=== PATIENT | female | born 1940 | race Caucasian/White ===

== ENCOUNTER 2019-06-02 23:30 | Inpatient (IN) | payer MEDICARE, OTHER ==
[~2019-06-02] VITALS: Ht 152.4 cm; Wt 56.2 kg
--- NOTE | 2019-06-02 23:40 | NUR ---
SEEN AND EXAMINED BY .
[2019-06-02] MEDS ORDERED: MORPHINE SULFATE INJ 4 MG/ML DISP.SYRIN ONE (23:42)
[2019-06-02] MEDS ORDERED: ONDANSETRON HCL/PF 4 MG/2 ML VIAL ONE (23:42)
--- NOTE | 2019-06-02 23:50 | NUR ---
PT AAOX3. BIBRA 102 FROM HOME C/O R FLANK PAIN AND ABD PAIN THAT STARTED 2 HOURS PRIOR TO ARRIVAL. PT PLACED IN BED 1, IV INITIATED, LABS DRAWN, AND GIVEN PAIN MEDICATION. PT PLACED IN HOSPITAL GOWN, ON MONITOR, AND PULSE OX. DAUGHTER AT BEDSIDE SPEAKING TO MD DUE TO PT BEING ETHIOPIAN SPEAKING ONLY. VSS. WILL CONTINUE TO MONITOR.
[2019-06-02 23:51] LABS: BASOPHILS # (AUTO) 0.1 /CMM (0.0-0.2); BASOPHILS % (AUTO) 0.7 % (0.0-2.0); EOSINOPHILS % (AUTO) 0.4 % (0.0-6.0); HEMATOCRIT 42 % (33-45); HEMOGLOBIN 13.2 g/dL (11.5-14.8); LYMPHOCYTES # (AUTO) 3.4 /CMM (0.8-4.8); LYMPHOCYTES % (AUTO) 26.6 % (20.0-44.0); MEAN CORPUSCULAR HGB CONC 31 g/dl (31.0-36.0); MEAN CORPUSCULAR VOLUME 89 fL (82-100); MONOCYTES # (AUTO) 0.9 /CMM (0.1-1.30); MONOCYTES % (AUTO) 6.8 % (2.0-12.0); NEUTROPHILS # (AUTO) 8.3 /CMM (1.8-8.9); NEUTROPHILS % (AUTO) 65.5 % (43.0-81.0); PLATELET COUNT (AUTO) 528 /CMM (150-450); RED BLOOD CELL COUNT(AUTO) 4.76 MIL/uL (4.0-5.2); WHITE BLOOD COUNT (AUTO) 12.7 K/uL (4.3-11.0)
[2019-06-02] MEDS ORDERED: KETOROLAC TROMETHAMINE 15 MG/ML VIAL ONE (23:52)
[2019-06-02 23:59] LABS: CARBON DIOXIDE 31 mmol/L (21-32); CHLORIDE 102 mmol/L (98-107); CREATININE 0.9 mg/dL (0.6-1.3); GLUCOSE 165 mg/dL (74-106); POTASSIUM 3.4 mmol/L (3.5-5.1); SODIUM SERUM 142 mmol/L (136-145); UREA NITROGEN, BLOOD 20 mg/dL (7-18)
[2019-06-03] VITALS (11 sets, daily range): BP systolic 60–115; BP diastolic 35–70
[2019-06-03] MEDS ORDERED: MORPHINE SULFATE INJ 2 MG/ML DISP.SYRIN IV ONE
[2019-06-03] MEDS ORDERED: ONDANSETRON HCL/PF 4 MG/2 ML VIAL IVP ONE
[2019-06-03] MEDS ORDERED: KETOROLAC TROMETHAMINE INJ 30 MG/ML VIAL IV ONE
--- NOTE | 2019-06-03 00:02 | NUR ---
PT IS WHEELED TO CT SCAN VIA [facility].
[2019-06-03 00:04] LABS: ALANINE AMINOTRANSFERASE 47 U/L (12-78); ALKALINE PHOSPHATASE 147 U/L (46-116); ASPARTATE AMINOTRANSFERASE 32 U/L (15-37); BILIRUBIN,DIRECT 0.2 mg/dL (0.0-0.2); BILIRUBIN,TOTAL 0.4 mg/dL (0.2-1.0); LIPASE 235 U/L (73-393); TOTAL PROTEIN, SERUM 6.6 g/dL (6.4-8.2)
--- NOTE | 2019-06-03 00:11 | NUR ---
PT RETURNED FROM CT
--- NOTE | 2019-06-03 00:15 | NUR ---
DAUGHTER AT BEDSIDE REFUSING TO LEAVE.
--- NOTE | 2019-06-03 00:25 | NUR ---
DR. MARINA ON THE PHONE WITH RADIOLOGIST, DR. RODGERS
--- NOTE | 2019-06-03 00:32 | NUR ---
DR. PEDERSEN ON THE PHONE WITH DR. WILSON, TELEGRAPH REPEATER TECHNICIAN SURGERY
--- NOTE | 2019-06-03 00:35 | NUR ---
PT C/O OF PAIN, GIVEN PAIN MEDICATION.
[2019-06-03] MEDS ORDERED: DIATR MEGLU/DIATRIZOATE SODIUM 120 ML BOTTLE (GASTROGRAPHIN) ONE (00:42)
[2019-06-03] MEDS ORDERED: METRONIDAZOLE 500MG/ NS 100ML 100 ML IV ONE ×2 (00:44→22:04)
[2019-06-03] MEDS ORDERED: HYDROMORPHONE 1 MG/1 ML DISP.SYRIN ONE ×2 (00:44→04:38)
--- NOTE | 2019-06-03 00:45 | NUR ---
BED ASSIGNMENT 311-1
--- NOTE | 2019-06-03 00:50 | NUR ---
DAUGHTER AT BEDSIDE, TOLD TO WAIT IN THE WAITING ROOM.
--- NOTE | 2019-06-03 00:51 | NUR ---
DR. MARINA ON THE PHONE WITH DR. REILLY
[2019-06-03] MEDS ORDERED: IV NS 0.9% 1,000 ML IV PRN (00:56)
[2019-06-03] MEDS ORDERED: DIATR MEGLU/DIATRIZOATE SODIUM 120 ML BOTTLE (GASTROGRAPHIN) PO ONE (01:00)
[2019-06-03] MEDS ORDERED: Z GUARD REMEDY 2 OZ OINT TP PRN (01:00)
[2019-06-03] MEDS ORDERED: FLAGYL/NS RTU 500 MG/100 ML PIGGYBACK IV ONE (01:00)
[2019-06-03] MEDS ORDERED: FLUCONAZOLE IN NS 100 MG in PREMIX 1 EA IV SCH ×2 (01:00)
[2019-06-03] MEDS ORDERED: FLUCONAZOLE IN NS 100 ML IV ONE (01:00)
[2019-06-03] MEDS ORDERED: HYDROMORPHONE 1 MG/1 ML DISP.SYRIN IV ONE (01:00)
[2019-06-03] MEDS ORDERED: PANTOPRAZOLE 40 MG VIAL ONE (01:10)
--- NOTE | 2019-06-03 01:21 | NUR ---
PT RESTING COMFORTABLY. VSS.
[2019-06-03] MEDS ORDERED: CIPROFLOXACIN IV RTU 200 ML IV ONE (01:50)
[2019-06-03] MEDS: CIPROFLOXACIN IV RTU 400 MG in PREMIX 1 EA IV SCH ×2 (02:00→13:06)
--- NOTE | 2019-06-03 02:06 | NUR ---
BROUGHT TO CT
[2019-06-03] MEDS ORDERED: IOHEXOL-300 100 ML VIAL IV ONE (02:07)
--- NOTE | 2019-06-03 02:55 | NUR ---
ATTEMPTED TO CONTACT DR. WILSON. LEFT MESSAGE, WILL FOLLOW UP
[2019-06-03] MEDS ORDERED: LISI-607 PO (03:03)
[2019-06-03] MEDS ORDERED: APIX2.5T PO (03:03)
[2019-06-03] MEDS ORDERED: ATOR20TA PO (03:03)
[2019-06-03] MEDS ORDERED: FURO40TA5 PO (03:03)
[2019-06-03] MEDS ORDERED: ASPI-1169 PO (03:03)
--- NOTE | 2019-06-03 03:03 | NUR ---
PARTIAL MED LIST OBTAINED FROM DAUGHTER. DAUGHTER WILL BRING MED LIST TO THE HOSPITAL TOMORROW.
--- NOTE | 2019-06-03 03:17 | NUR ---
CLEARANCE DIVER AT BEDSIDE FOR LACTIC
--- NOTE | 2019-06-03 03:19 | NUR ---
LEFT MESSAGE WITH DR. WILSON, WILL FOLLOW UP
--- NOTE | 2019-06-03 04:00 | NUR ---
LEFT MESSAGE WITH DR. WILSON
--- NOTE | 2019-06-03 04:01 | NUR ---
WAGE HAND AT BEDSIDE FOR DRAW.
--- NOTE | 2019-06-03 04:30 | NUR ---
REPORT GIVEN TO PURNIMA BINGHAM FOR JUDIE
[2019-06-03 04:31] LABS: BASOPHILS % (AUTO) 0.5 % (0.0-2.0); EOSINOPHILS % (AUTO) 0.1 % (0.0-6.0); HEMATOCRIT 41 % (33-45); HEMOGLOBIN 13.1 g/dL (11.5-14.8); LYMPHOCYTES # (AUTO) 0.7 /CMM (0.8-4.8); LYMPHOCYTES % (AUTO) 9.5 % (20.0-44.0); MEAN CORPUSCULAR HGB CONC 32 g/dl (31.0-36.0); MEAN CORPUSCULAR VOLUME 88 fL (82-100); MONOCYTES # (AUTO) 0.5 /CMM (0.1-1.30); MONOCYTES % (AUTO) 6.3 % (2.0-12.0); NEUTROPHILS # (AUTO) 6.4 /CMM (1.8-8.9); NEUTROPHILS % (AUTO) 83.6 % (43.0-81.0); PLATELET COUNT (AUTO) 474 /CMM (150-450); RED BLOOD CELL COUNT(AUTO) 4.68 MIL/uL (4.0-5.2); WHITE BLOOD COUNT (AUTO) 7.6 K/uL (4.3-11.0)
--- NOTE | 2019-06-03 04:58 | NUR ---
DR. MARINA ON THE PHONE WITH DR. WILSON
[2019-06-03] MEDS ORDERED: HYDROMORPHONE 1 MG/1 ML DISP.SYRIN IV PRN (05:00)
--- NOTE | 2019-06-03 05:10 | NUR ---
PT TRANSPROTED TO UNIT 3 PER ACLS PROTOCOL
--- NOTE | 2019-06-03 06:50 | NUR ---
MS[facility]. PATIENT WAS AWAKE, ALERT, ORIENTED X 3, COMFORTABLE, NO C/O PAIN, NO DISTRESS NOTED, MADE COMFORTABLE IN BED, TAUGHT THE USE OF CALL LIGHT, PLACED AT BEDSIDE WITHIN REACH, FALL PRECAUTIONS PER PROTOCOL. PATIENT IS SLEEPING AT THIS TIME, WILL CONTINUE TO MONITOR.
--- NOTE | 2019-06-03 07:37 | NUR ---
RENTAL CAR FERRY DRIVER NOTES PT IN BED, AWAKE, ALERT AND VERBALLY RESPONSIVE, WITH COMPLAINT OF SLIGHT PAIN AT RIGHT FLANK, RESPIRATIONS NORMAL, CALL LIGHT WITHIN REACH, IV FLUIDS INFUSING WELL, KEPT WARM AND COMFORTABLE IN BED.
[2019-06-03] MEDS ORDERED: ASPI-1152 PO (07:43)
[2019-06-03] MEDS ORDERED: METO25TA20 PO (07:43)
--- NOTE | 2019-06-03 07:44 | NUR ---
MANAGER BANQUET/MED RECON CALLED AND SPOKE WITH LLOYD [phone] (DAUGHTER). PARTIAL INFORMATION OBTAINED. PER DAUGHTER "I WILL CALL OR BRING THE LIST LATER IF THERE IS MORE MEDICATION". PCP OFFICE AND PHARMACY OF CHOICE IS CLOSED ON . PRIMARY NURSE AWARE.
[2019-06-03] MEDS ORDERED: PANTOPRAZOLE 40 MG VIAL IV SCH (09:00)
--- NOTE | 2019-06-03 13:00 | NUR ---
RETAIL SALESMAN NOTES PT IN BED, AWAKE, ALERT AND ORIENTED, SEEN AND EXAMINED BY DR. TOMMIE WILSON, PLAN OF CARE DISCUSSED WITH PT AND FAMILY VIA PHONE, VERBALIZED UNDERSTANDING, MD ORDERED NGT INSERTION, NOTED AND CARRIED OUT, PT TOLERATED PROCEDURE WELL, VERIFIED PLACEMENT VIA CXR, NGT PROPERLY PLACED, STARTED ON LOW INTERMITTENT SUCTIONS ORDERED, WILL CONTINUE TO MONITOR.
[2019-06-03] MEDS: DIGOXIN INJ 0.5 MG/2 ML AMPUL IV SCH ×3 (13:05→23:39)
[2019-06-03] MEDS ORDERED: IV NS 0.9% 250 ML IV ONE ×2 (17:00)
--- NOTE | 2019-06-03 17:00 | NUR ---
IVF EMBRYOLOGIST NOTES NOTED PT'S BP 58/35, RECHECKED WITH SAME RESULT, RECHECKED USING MANUAL BP, 60/35, HR 92, PT DOES NOT COMPLAIN OF DIZZINESS OR HEADACHE, REMAINS ALERT AND VERBALLY RESPONSIVE, NO CHANGE IN LOC, DR. FOUNTAIN INFORMED WITH ORDER OF NS 250 BOLUS X 1, NOTED AND CARRIED OUT, WILL CONTINUE TO MONITOR PT.
[2019-06-03] MEDS: Potassium Chloride 20 MEQ in IV D5/0.45 NACL 1,000 ML IV PRN ×2 (17:16→20:08)
--- NOTE | 2019-06-03 17:30 | NUR ---
GEOCHEMIST NOTES COMPLETED NS BOLUS OF 250 ML, BP 81/48, DR. FOUNTAIN INFORMED, NEW LABS ORDERED.
[2019-06-03 17:49] LABS: BASOPHILS % (AUTO) 0.1 % (0.0-2.0); LYMPHOCYTES # (AUTO) 0.9 /CMM (0.8-4.8); WHITE BLOOD COUNT (AUTO) 10.6 K/uL (4.3-11.0)
--- NOTE | 2019-06-03 18:00 | NUR ---
BATTERY INSPECTOR NOTES PER BELINDA TRAYLOR TO GIVE DIGOXIN ORDERED.
--- NOTE | 2019-06-03 18:00 | NUR ---
HIMS CODER NOTES PT'S BP 84/49 HR 100, DR. FOUNTAIN INFORMED, NO NEW ORDER GIVEN, AWAITING LAB RESULTS, PT REMAINS ALERT, NO CHANGE IN LOC, WILL CONTINUE TO MONITOR.
[2019-06-03 18:08] LABS: LYMPHOCYTES % (AUTO) 8.9 % (20.0-44.0); MEAN CORPUSCULAR HGB CONC 31 g/dl (31.0-36.0); MEAN CORPUSCULAR VOLUME 89 fL (82-100)
[2019-06-03 18:22] LABS: MONOCYTES % (AUTO) 4.2 % (2.0-12.0); NEUTROPHILS % (AUTO) 86.9 % (43.0-81.0)
[2019-06-03 18:23] LABS: MONOCYTES # (AUTO) 0.4 /CMM (0.1-1.30); NEUTROPHILS # (AUTO) 9.2 /CMM (1.8-8.9); RED BLOOD CELL COUNT(AUTO) 4.83 MIL/uL (4.0-5.2)
[2019-06-03 18:24] LABS: HEMATOCRIT 43 % (33-45); HEMOGLOBIN 13.3 g/dL (11.5-14.8); PLATELET COUNT (AUTO) 405 /CMM (150-450)
[2019-06-03] MEDS: METRONIDAZOLE 500MG/ NS 100ML 500 MG in PREMIX 1 EA IV SCH ×2 (18:54→23:29)
[2019-06-03] MEDS ORDERED: IV NS 0.9% 500 ML IV STA (19:11)
--- NOTE | 2019-06-03 19:21 | NUR ---
RN NOTES: DR FOUNTAIN CURRENTLY IN THE UNIT, RELAYED LACTIC ACID RESULT AND LOW BP. RECHECK MANY TIMES USING MANUAL AND AUTOMATIC CUFF, ALSO MD RECHECK IT HIMSELF, STILL ON LOW 70'S. PER MD VERBAL ORDER TO GIVE 500ML NS BOLUS, TRANSFER TO ICU, START ON PRESSORS IN ICU, ONCE BP STABILIZE THEN SHE CAN GO TO OR. ALSO MD WILL PUT A PICC LINE PT'S IV ACCESS GOT INFILTRATED, AND PICC IS RECOMMENDED SINCE PT WILL BE GOING TO ICU AND WILL ANTICIPATE LAB WORKS AND DRIPS TO STABILIZE BLOOD PRESSURE.
[2019-06-03] MEDS ORDERED: IV NS 0.9% 500 ML IV ONE (19:30)
[2019-06-03] MEDS ORDERED: NOREPINEPHRINE 8 MG in IV NS 0.9% 242 ML IV PRN (19:30)
--- NOTE | 2019-06-03 19:34 | NUR ---
OPTICAL ADVISOR NOTES PT'S FAMILY INFORMED OF PT'S CHANGE OF CONDITION AND PLAN FOR TRANSFER TO ICU AND THEN TO SURGERY ONCE BP STABILIZES, SPOKE WITH TIFFANY DAUGHTER IN LAW, CONSENT GIVEN FOR CENTRAL LINE INSERTION BY DR. FOUNTAIN, PT REMAINS ALERT AND AWAKE, NO CHANGE IN LOC NOTED.
--- NOTE | 2019-06-03 19:55 | NUR ---
ODD SHOE EXAMINER NOTES PT TRANSFERRED TO ICU VIA ACLS PROTOCOL WITH ALL MEDS AND BELONGINGS, REPORT GIVEN TO AICHA RECREATIONAL THERAPIST FOR CONTINUITY OF CARE, PT REMAINS AWAKE, ALERT AND ORIENTED, NOT IN DISTRESS.
[2019-06-03] MEDS ORDERED: PHENYLEPHRINE 100 MG in IV NS 0.9% 240 ML IV PRN (20:00)
[2019-06-03] MEDS ORDERED: FENTANYL PF 100MCG/2ML AMPUL ONE (20:06)
[2019-06-03] MEDS ORDERED: SUCCINYLCHOLINE CHLORIDE 20 MG/ML VIAL ONE (20:07)
[2019-06-03] MEDS ORDERED: ROCURONIUM BROMIDE 50 MG/5 ML ONE (20:07)
[2019-06-03] MEDS ORDERED: BUPIVACAINE MPF 0.5% W/EPI INJ 30 ML VIAL ONE (20:13)
[2019-06-03] MEDS ORDERED: ANESTHESIA TRAY IN PYXIS 1 EA TRAY MC ONE (20:13)
[2019-06-03] MEDS ORDERED: LIDOCAINE 1% INJ 50 ML MDV IJ ONE (20:13)
[2019-06-03] MEDS ORDERED: PHENYLEPHRINE 10 MG/ML VIAL ONE (20:15)
[2019-06-03] MEDS: PANTOPRAZOLE 40 MG VIAL IV SCH (20:43)
--- NOTE | 2019-06-03 21:00 | NUR ---
SURGICAL NURSE PRACTITIONER NOTES PATIENT LEFT ICU HOSPITAL BED, EN ROUTE TO OR FOR SCHEDULED SURGERY. CONSENTS FOR PROCEDURE, ANESTHESIA AND BLOOD OBTAINED FROM PATIENT'S DAUGHTER TIFFANY RIVERA [phone].
--- NOTE | 2019-06-03 21:30 | NUR ---
TRAINING INSTRUCTOR NOTES - BELONGINGS PATIENT'S BELONGINGS SENT TO SAFE IN NURSING [facility]GNOS ARCHITECT'S OFFICE, WITNESSED BY HOUSE SUPERVISORS JOSE.
--- NOTE | 2019-06-03 23:07 | NUR ---
FOUNTAIN PEN NIBS INSPECTOR NOTES PATIENT BACK FROM SURGERY, S/P EXPLORATORY LAPAROTOMY, REPAIR OF PYLORIC ULCER, GASTRIC WEDGING, BIOPSY OF THE LIVER, ABDOMINAL WASHOUT, VENTRAL HERNIA REPAIR. PATIENT REMAINS ORALLY INTUBATED ON MECHANICAL VENT, ETT 7.0/22CM AT LIP LINE WITH VENT SETTINGS AC16, TV 450, FIO2 100%, NO PEEP. PATIENT WITH MIDLINE ABDOMINAL INCISION, COVERED WITH DRESSING, NO BLEEDING NOTED AT SITE. LEO DRAIN X2 ON LEFT ABDOMONE AND RIGHT ABDOMEN, BOTH WITH SEROSANGUINOUS DRAINAGE. WILL MONITOR CLOSELY
--- NOTE | 2019-06-03 23:41 | NUR ---
PT REC'D POST SURGERY INTUBATED WITH ET TUBE 7.0 AT 22CM AT THE LIP. PT PLACED ON NOTED SETTING AC 16, 450, 0 PEEP 100% PT APPEARS TO BE TOLERATING SETTINGS WELL, NO ADVERSE REACTION. BREATHS SOUNDS EQUAL BILAT. SX DONE SMALL AMOUNT OF THIN FABIAN/YELLOW. VENT ALARMS SET, SOUND, AND AUDIBLE. BED AT 30 DEGREES. AMBU BAG AT BEDSIDE. WILL CONTINUE TO MONITOR. Addendum: 06/03/19 at 2347 by ANNELISE LUX RT Amended: Links added.
--- NOTE | 2019-06-03 23:50 | NUR ---
CHANGE MANAGEMENT NOTES RECEIVED CALL FROM DR CHRISTIANO FOUNTAIN, WITH NEW ORDERS TO START AMIODARONE BOLUS, THEN DRIP, Addendum: 06/03/19 at 2355 by AWAIS PAEZ RN CHRISTIANO FOUNTAIN ALSO WITH NEW ORDER TO INITIATE PROPOFOL DRIP IF PATIENT BECOMES AGITATED. 2ND PRESSOR LEVOPHED IF NEEDED. ALL ORDERS READ BACK FOR CLARIFICATION. WILL MONITOR CLOSELY
[2019-06-03] MEDS ORDERED: AMIODARONE 150 MG/3 ML VIAL IV ONE ×2 (23:57→23:58)
[2019-06-04] VITALS (89 sets, daily range): BP systolic 79–139; BP diastolic 30–96
[2019-06-04] MEDS ORDERED: AMIODARONE 150 MG in IV D5W 100 ML IV ONE ×2
[2019-06-04] MEDS ORDERED: AMIODARONE 450 MG in IV D5W 241 ML IV PRN ×2
[2019-06-04] MEDS ORDERED: NOREPINEPHRINE 8 MG in IV NS 0.9% 242 ML IV PRN ×2
--- NOTE | 2019-06-04 00:15 | NUR ---
DEMONSTRATOR KNITTING NOTES RECEIVED CALL FROM DR MIN, RADIOLOGIST. PER DR MIN ETT IS 1.6CM BELOW KARO, AND TO PULL THE TUBE BACK OUT BY 3CM. RT ANNELISE CALLED TO BEDSIDE, TUBE PULLED OUT 3CM TO 19CM @ LIP LINE
--- NOTE | 2019-06-04 00:18 | NUR ---
RT NOTE: ETT TUBE WITHDRAWN 3CM. ET TUBE NOW AT 19CM ON THE LIP. Addendum: 06/04/19 at 0019 by ANNELISE LUX RT Amended: Links added.
[2019-06-04] MEDS: CIPROFLOXACIN IV RTU 400 MG in PREMIX 1 EA IV SCH ×2 (00:57→12:41)
--- NOTE | 2019-06-04 02:45 | NUR ---
SYSTEMS DESIGNER NOTES DIPRIVAN DRIP INITIATED DUE TO AGITATED, PATIENT COUGHING, SETTING OFF ALARMS AND TAPPING ON SIDE RAIL.
[2019-06-04] MEDS: PROPOFOL 100 ML IV PRN ×4 (02:46→20:27)
--- NOTE | 2019-06-04 02:53 | NUR ---
ROCK CLIMBING INSTRUCTOR NOTES SPOKE TO DR TOMMIE DAY REGARDING HR DROPPING TO 56 BPM WHILE ON AMIODARONE DRIP. PER DR REILLY, HOLD DRIP IF HR GOES BELOW 60BPM, AND RESTART IF HR GOES ABOVE 120BPM.
[2019-06-04] MEDS: METRONIDAZOLE 500MG/ NS 100ML 500 MG in PREMIX 1 EA IV SCH ×3 (02:59→17:10)
[2019-06-04 04:40] LABS: BASOPHILS % (AUTO) 0.2 % (0.0-2.0); HEMATOCRIT 40 % (33-45); HEMOGLOBIN 12.6 g/dL (11.5-14.8); LYMPHOCYTES # (AUTO) 1.4 /CMM (0.8-4.8); LYMPHOCYTES % (AUTO) 7.5 % (20.0-44.0); MEAN CORPUSCULAR HGB CONC 31 g/dl (31.0-36.0); MEAN CORPUSCULAR VOLUME 89 fL (82-100); MONOCYTES # (AUTO) 0.8 /CMM (0.1-1.30); MONOCYTES % (AUTO) 4.5 % (2.0-12.0); NEUTROPHILS % (AUTO) 87.8 % (43.0-81.0); PLATELET COUNT (AUTO) 467 /CMM (150-450); RED BLOOD CELL COUNT(AUTO) 4.52 MIL/uL (4.0-5.2); WHITE BLOOD COUNT (AUTO) 18.3 K/uL (4.3-11.0)
[2019-06-04 04:51] LABS: ALANINE AMINOTRANSFERASE 25 U/L (12-78); ALBUMIN 1.8 g/dL (3.4-5.0); ALKALINE PHOSPHATASE 80 U/L (46-116); ASPARTATE AMINOTRANSFERASE 25 U/L (15-37); BILIRUBIN,TOTAL 0.5 mg/dL (0.2-1.0); CALCIUM, SERUM 7.2 mg/dL (8.5-10.1); CARBON DIOXIDE 26 mmol/L (21-32); CHLORIDE 103 mmol/L (98-107); CREATININE 1.6 mg/dL (0.6-1.3); GLUCOSE 92 mg/dL (74-106); MAGNESIUM 1.6 mg/dL (1.8-2.4); PHOSPHORUS 5.1 mg/dL (2.5-4.9); POTASSIUM 4.7 mmol/L (3.5-5.1); SODIUM SERUM 138 mmol/L (136-145); TOTAL PROTEIN, SERUM 4.6 g/dL (6.4-8.2); UREA NITROGEN, BLOOD 32 mg/dL (7-18)
[2019-06-04 05:01] LABS: CHOLESTEROL 81 mg/dL (<200); HDL CHOLESTEROL 35 mg/dL (40-60); LDL 35 mg/dL (0-99); THYROID STIMULATING HORMONE 3.903 uIU/mL (0.358-3.74); TRIGLYCERIDES 75 mg/dL (30-150)
--- NOTE | 2019-06-04 06:00 | NUR ---
CARDING SUPERVISOR NOTES LEO DRAIN OUTPUT RIGHT 120 - DARK BROWN/SEROSANGUINOUS LEFT 100 - SEROSANGUINOUS
--- NOTE | 2019-06-04 07:00 | NUR ---
RN NOTES RECEIVED PT ON BED, INTUBATED, SEDATED ,ON DIPRIVAN , TOLERATING CURRENT VENT SETTING WELL,O2 SAT 98%,DRESSING TO MID ABDOMEN CLEAN, DRY AND INTACT, RIGHT AND LEFT ABDOMEN LEO DRAINS INTACT, AND DRINING SEROSANGUINEOUS, JAN AT 2.3 MCG/KG/MIN RUNNING VIA R UPPER ARM PICC LINE, SITE CLEAN, DRY AND INTACT, SR UP x3, CALL LIGHT WITHIN EASY REACH, BED LOCKED AND IN LOWEST POSITION, CONTINUE TO MONITOR.
[2019-06-04] MEDS ORDERED: MAGN400T26 PO (07:07)
[2019-06-04] MEDS ORDERED: PHENYLEPHRINE 100 MG in IV NS 0.9% 240 ML IV PRN (07:30)
[2019-06-04] MEDS: IV NS 0.9% 1,000 ML IV SCH ×2 (07:50→14:48)
--- NOTE | 2019-06-04 07:50 | NUR ---
RT PATIENT REC'D ORALLY INTUBATED ON [facility] VENT. ETT SECURE AND PATENT. VENT SETTINGS AND ALARMS CHECKED. RUKHSANAU BAG AT HOB Addendum: 06/04/19 at 1421 by BEV ALTMAN RT Amended: Links added.
[2019-06-04] MEDS: PANTOPRAZOLE 40 MG VIAL IV SCH ×2 (08:08→20:59)
[2019-06-04 08:42] LABS: ABG BASE EXCESS 1.3 mmol/L; ABG OXYGEN SATURATION 98.6 % (92.0-98.5); ABG PCO2 28.3 mmHg (35.0-45.0); ABG PH 7.528 (7.350-7.450); ABG PO2 169.2 mmHg (75.0-100.0); AaDO2 83.5 mmHg; COHb 0.3 % (0.5-1.5); MetHb 0.6 % (0.0-1.5); O2Hb 97.7 % (94.0-97.0); SITE, ABG Right Radial
[2019-06-04] MEDS ORDERED: Magnesium 1GM/D5W 100ML PREMIX 100 ML IV SCH (09:45)
--- NOTE | 2019-06-04 09:45 | NUR ---
RT PER DR RAYMOND TIDAL VOLUME ON [facility] VENT LOWERED TO 400. Addendum: 06/04/19 at 1422 by BEV ALTMAN RT Amended: Links added.
--- NOTE | 2019-06-04 10:00 | NUR ---
RN NOTES DR FOUNTAIN NOTIFED REGARDING 100.2 AXILLARY .
[2019-06-04] MEDS: ACETAMINOPHEN 650 MG/SUPP.RECT RC PRN ×3 (11:02→17:18)
--- NOTE | 2019-06-04 12:00 | NUR ---
RN NOTES DRESSING TO MID ABDOMEN CLEAN ,DRY AND INTACT, PT IS SEDATED, CONTINUE TO MONITOR ,CONTINUE TO TITRATE JAN AND DIPRIVAN GTT PER PROTOCOL.
--- NOTE | 2019-06-04 14:00 | NUR ---
RN NOTES PT SEDATED, NS AT 200CC/HR RUNNING , CONTINUE TO MONITOR .
--- NOTE | 2019-06-04 18:00 | NUR ---
RN NOTES PT ON JAN GTT AT .9 MCG/KG/MIN , DIPRIVAN AT 40 MCG/KG/MIN AND NS AT 200CC/HR RUNNING AT THIS TIME VIA R ARM PICC LINE, IV SITE CLEAN , DRY AND INTACT, FOY DRANING TO GRAVITY WITH TEA COLOR URINE . 170 CC SEROSANGUINEOUS DRAINAGE FROM LEFT LEO DRAIN AND 70 CC DARK GREENISH DRAINING FROM RIGHT LEO DRAIN OBTAINED DURING THIS SHIFT. DRESSING TO MID ABDOMEN CLEAN, DRY AND INTACT , SR UP x3,CALL LIGHT WITHIN EASY REACH , BED LOCKED AND IN LOWEST POSITION, WILL ENDORSE TO TITLE CHECKER NURSE FOR CONTINUITY OF CARE .
--- NOTE | 2019-06-04 19:30 | NUR ---
GREENS PICKER NOTES RECEIVED PATIENT IN BED,SEDATED ON PROPOFOL DRIP CURRENTLY AT 40MCG/KG/MIN. PATIENT ORALLY INTUBATED ON MECHANICAL VENT SETTING PRESCRIBED TOLERATING WELL. NO SIGNS AND SYMPTOMS OF RESPIRATORY DISTRESS NOTED. PATIENT ON TELE MONITORING SHOWING A READING A-FIB CONTROLLED AT 85 BEATS PER MINUTE. MORALES PICC LINE INTACT PATENT RUNNING NORSYNEPHRINE DRIP AT 0.9MCG/KG/MIN. RIGHT NARE NG TUBE ON LOW INTERMITTENT SUCTION,GREENISH DRAINAGE NOTED. MID ABD SURGICAL SITE/ DRESSING CLEAN DRY AND INTACT NO BLEEDING NOTED AT THIS TIME. NOTED WITH LEFT AND RIGHT LEO DRAINAGE. FOY CATHETER PATENT/INTACT DARNING WELL URINE YELLOW TO GRAVITY. BILATERAL SOFT WRIST INTACT PLACED FOR SAFETY. SAFETY MEASURES IN PLACE, BED IN LOW AND LOCKED POSITION. CALL LIGHT WITHIN REACH. WILL CONT TO MONITOR.
[2019-06-04] MEDS ORDERED: FEE PK DOSING 1 MIN EA MC ONE ×2 (19:34→19:40)
[2019-06-04] MEDS: MEROPENEM 500 MG in IV NS 0.9% 50 ML IV SCH (20:26)
[2019-06-04] MEDS: VANCOMYCIN 1 GM in IV D5W 250 ML IV SCH (20:57)
--- NOTE | 2019-06-04 21:00 | NUR ---
GRADUATE ASSISTANT ATHLETIC TRAINER NOTE URINE SPECIMEN COLLECTED USING ASEPTIC TECHNIQUE SENT TO LAB FOR TESTED.
[2019-06-05] VITALS (59 sets, daily range): BP systolic 89–132; BP diastolic 20–99
[2019-06-05] MEDS: PROPOFOL 100 ML IV PRN ×2 (00:35→07:13)
[2019-06-05] MEDS: MORPHINE SULFATE INJ 2 MG/ML DISP.SYRIN IV PRN ×3 (00:50→18:44)
--- NOTE | 2019-06-05 00:50 | NUR ---
ENVIRONMENTAL MANAGER NOTES PRN MORPHINE 2MG ADMINISTERED ORDERED PATIENT NOTED WITH FACIAL GRIMACING HR ELEVATED.
[2019-06-05 04:41] LABS: BASOPHILS # (AUTO) 0.1 /CMM (0.0-0.2); BASOPHILS % (AUTO) 0.6 % (0.0-2.0); EOSINOPHILS % (AUTO) 0.7 % (0.0-6.0); HEMATOCRIT 37 % (33-45); HEMOGLOBIN 11.7 g/dL (11.5-14.8); LYMPHOCYTES # (AUTO) 1.1 /CMM (0.8-4.8); LYMPHOCYTES % (AUTO) 7.2 % (20.0-44.0); MEAN CORPUSCULAR HGB CONC 32 g/dl (31.0-36.0); MEAN CORPUSCULAR VOLUME 88 fL (82-100); MONOCYTES # (AUTO) 0.7 /CMM (0.1-1.30); MONOCYTES % (AUTO) 4.6 % (2.0-12.0); NEUTROPHILS # (AUTO) 13.2 /CMM (1.8-8.9); NEUTROPHILS % (AUTO) 86.9 % (43.0-81.0); PLATELET COUNT (AUTO) 408 /CMM (150-450); RED BLOOD CELL COUNT(AUTO) 4.18 MIL/uL (4.0-5.2); WHITE BLOOD COUNT (AUTO) 15.2 K/uL (4.3-11.0)
[2019-06-05 04:43] LABS: CALCIUM, SERUM 7.8 mg/dL (8.5-10.1); CARBON DIOXIDE 29 mmol/L (21-32); CHLORIDE 108 mmol/L (98-107); CREATININE 1.4 mg/dL (0.6-1.3); GLUCOSE 75 mg/dL (74-106); POTASSIUM 3.8 mmol/L (3.5-5.1); SODIUM SERUM 143 mmol/L (136-145); UREA NITROGEN, BLOOD 32 mg/dL (7-18)
[2019-06-05 04:48] LABS: ALANINE AMINOTRANSFERASE 20 U/L (12-78); ALBUMIN 1.5 g/dL (3.4-5.0); ALKALINE PHOSPHATASE 86 U/L (46-116); ASPARTATE AMINOTRANSFERASE 22 U/L (15-37); BILIRUBIN,TOTAL 0.5 mg/dL (0.2-1.0); MAGNESIUM 1.7 mg/dL (1.8-2.4); PHOSPHORUS 5.2 mg/dL (2.5-4.9); TOTAL PROTEIN, SERUM 4.5 g/dL (6.4-8.2)
--- NOTE | 2019-06-05 06:00 | NUR ---
EMPLOYEE RELATIONS ADMINISTRATOR NOTE LEO DRAIN OUTPUT LEFT-240ML SEROSANGUINEOUS RIGHT-60ML GREENISH
--- NOTE | 2019-06-05 06:53 | NUR ---
CREDIT COUNSELOR NOTE BED BATH RENDERED TOLERATED WELL.
--- NOTE | 2019-06-05 06:55 | NUR ---
TURKEY FARMER NOTES PATIENT RESTING COMFORTABLY IN BED. NO S/S OF DISTRESS NOTED. F/C INTACT DARNING MICHELA COLOR URINE WITH GRAVITY. PROPOFOL DRIP CONTINUES AT 40MCG/KG/MIN. JAN @ 0.9MG/MIN. FIO2 REMAINS AT 40% TOLERATING SETTING WELL. SAFETY MEASURES IN PLACE, CALL LIGHT WITHIN REACH. WILL ENDORSE PATIENT TO DAY SHIFT NURSE FOR JUDIE.
[2019-06-05] MEDS ORDERED: IV NS 0.9% 250 ML IV PRN (07:00)
--- NOTE | 2019-06-05 07:05 | NUR ---
RN NOTES RECEIVED PT ON BED, INTUBATED, SEDATED ,ON DIPRIVAN AT 40MCG/KG/MIN , TOLERATING CURRENT VENT SETTING WELL, O2 SAT 100%, DRESSING TO MID ABDOMEN CLEAN, DRY AND INTACT, RIGHT AND LEFT ABDOMEN LEO DRAINS INTACT, JAN AT .9 MCG/KG/MIN RUNNING VIA R UPPER ARM PICC LINE, SITE CLEAN, DRY AND INTACT, SR UP x3, CALL LIGHT WITHIN EASY REACH, BED LOCKED AND IN LOWEST POSITION, CONTINUE TO MONITOR.
--- NOTE | 2019-06-05 08:07 | NUR ---
WOUND CARE CONSULT: PT PRESENTS WITH DRY INTACT ABDOMINAL SURGICAL DRESSINGS WITH 2 LEO DRAINS AND BLANCHABLE REDNESS TO SACRUM. RECOMMENDATIONS MADE FOR SKIN PROTECTION. DISCUSSED WITH NURSING STAFF. WILL SEE PRN. CURRENT BRANDON SCORE IS 13. MD IN AGREEMENT WITH PLAN OF CARE. Addendum: 06/05/19 at 0809 by MEENA CHASE WNDNU Amended: Links added.
[2019-06-05] MEDS ORDERED: FUROSEMIDE 20 MG/2 ML VIAL IV ONE (08:30)
--- NOTE | 2019-06-05 08:30 | NUR ---
RN NOTES PT PLACED ON SIMV MODE, OFF DIPRIVAN , ALERT AND TALKATIVE, VSS STABLE, CONTINUE TO MONITOR .
[2019-06-05] MEDS: PANTOPRAZOLE 40 MG VIAL IV SCH ×2 (08:52→21:18)
[2019-06-05] MEDS: MEROPENEM 500 MG in IV NS 0.9% 50 ML IV SCH ×2 (08:53→21:18)
[2019-06-05] MEDS ORDERED: DC PROPOFOL WHEN EXTUBATED XX PRN (09:00)
[2019-06-05] MEDS: Magnesium 1GM/D5W 100ML PREMIX 100 ML IV SCH ×2 (09:34→10:41)
[2019-06-05 09:51] LABS: ABG BASE EXCESS -0.9 mmol/L; ABG OXYGEN SATURATION 97.1 % (92.0-98.5); ABG PH 7.394 (7.350-7.450); ABG PO2 101.2 mmHg (75.0-100.0); COHb 0.3 % (0.5-1.5); MetHb 0.4 % (0.0-1.5); O2Hb 96.4 % (94.0-97.0); PEEP,BG 5 cm H2O; SITE, ABG Left Brachial; VT, ABG 400 mL
--- NOTE | 2019-06-05 10:22 | NUR ---
PT EXTUBATED PER MD ORDER POST WEANING TRIAL. DR. RAYMOND AT BEDSIDE ZERO DISTRESS NOTED PT ABLE TO PHONATE AND HAS STRONG COUGH. B/S CLEAR AND EQUAL. PLACED ON 3LPM N/C.
--- NOTE | 2019-06-05 12:00 | NUR ---
RN NOTES PT IS VERY ALERT AND ABLE TO MAKE NEEDS KNOWN, OFF JAN GTT, BP STABLE, CONTINUE TO MONITOR .
--- NOTE | 2019-06-05 15:06 | NUR ---
RN NOTES PT C/O ABDOMINAL PAIN , MORPHINE 2 MG IV GIVEN FOR PAIN MANAGEMENT.
--- NOTE | 2019-06-05 18:00 | NUR ---
RN NOTES DR CLARISA RODRIGUEZ REGARDING HEART RATE, NEW ORDER RECEIVED .
[2019-06-05] MEDS ORDERED: DIGOXIN INJ 0.5 MG/2 ML AMPUL IV ONE (18:13)
--- NOTE | 2019-06-05 18:30 | NUR ---
RN NOTES PT STATED FEEDS BETTER TODAY, VSS STABLE, DRESSING AND TWO LEO DRAINS TO ABDOMEN INTACT, 150CC SEROSANGUINEOUS FROM THE LEFT LEO AND 80CC SEROSANGUINEOUS DRAINING OBTAINED FROM R LEO CANDI , PT RESTING AT THIS TIME ,SR UP x3, CALL LIGHT WITHIN EASY REACH, BED LOCKED AND IN LOWEST POSITION, WILL ENDORSE TO PRIMARY CARE PHYSICIAN NURSE TO CONTINUITY OF CARE
[2019-06-05] MEDS: DIGOXIN INJ 0.5 MG/2 ML AMPUL IV SCH (18:39)
--- NOTE | 2019-06-05 19:30 | NUR ---
TRAFFIC RATE COMPUTER INITIAL SHIFT NOTES RECEIVED PATIENT IN BED, AWAKE, ALERT AND ORIENTED X3, MOSTLY [place] SPEAKING. ON O2 VIA NC @ 3LPM, TOLERATING WELL, SPO2 WNL. BEDSIDE SALES/MARKETING READS AFIB, HR 104 BPM AT THIS TIME. R NARE NGT PATENT AND INTACT, FLUSHED WITH 40CC AIR ORDERED, THEN CONNECTED BACK TO LOW INTERMITTENT SUCTION, TOLERATED WELL, NO FACIAL GRIMACE NOTED. MID ABDOMINAL SURGICAL SITE COVERED WITH DRESSING, NO BLEEDING NOTED ON DRESSING EDGES, ALSO NOTED WITH LEO DRAINS X2, LEFT AND RIGHT SIDE ABDOMEN. FOY CATHETER PATENT AND INTACT, DRAINING CLEAR YELLOW URINE VIA GRAVITY. CALL LIGHT LEFT WITHIN EASY REACH. WILL MONITOR CLOSELY
[2019-06-05] MEDS: VANCOMYCIN 1 GM in IV D5W 250 ML IV SCH (20:42)
[2019-06-06] VITALS (13 sets, daily range): BP systolic 104–130; BP diastolic 46–83
[2019-06-06] MEDS: DIGOXIN INJ 0.5 MG/2 ML AMPUL IV SCH ×3 (00:18→13:45)
[2019-06-06] MEDS: MORPHINE SULFATE INJ 2 MG/ML DISP.SYRIN IV PRN ×2 (00:28→08:37)
--- NOTE | 2019-06-06 00:30 | NUR ---
METHODS ANALYST DATA PROCESSING NOTES AFTER REPOSITIONING, PATIENT NOTED TO BE IN PAIN AND REQUESTED FOR PAIN MEDICATION. MORPHINE ADMINISTERED ORDERED. WILL MONITOR
[2019-06-06 04:38] LABS: CALCIUM, SERUM 7.6 mg/dL (8.5-10.1); CREATININE 1.3 mg/dL (0.6-1.3); POTASSIUM 3.5 mmol/L (3.5-5.1)
--- NOTE | 2019-06-06 06:00 | NUR ---
READING INSTRUCTOR NOTES LEO DRAIN TOTALS R 30 CLEAR GREENISH OUTPUT L 20 SEROSANGUINEOUS OUTPUT
[2019-06-06] MEDS: MEROPENEM 500 MG in IV NS 0.9% 50 ML IV SCH ×2 (08:16→22:01)
[2019-06-06] MEDS: PANTOPRAZOLE 40 MG VIAL IV SCH ×2 (08:16→21:08)
[2019-06-06] MEDS: IV D5/ 0.9% NACL 1,000 ML IV PRN (08:18)
[2019-06-06 09:40] LABS: BASOPHILS % (AUTO) 0.4 % (0.0-2.0); EOSINOPHILS % (AUTO) 3.1 % (0.0-6.0); HEMATOCRIT 35 % (33-45); HEMOGLOBIN 10.9 g/dL (11.5-14.8); LYMPHOCYTES # (AUTO) 0.8 /CMM (0.8-4.8); LYMPHOCYTES % (AUTO) 6.7 % (20.0-44.0); MEAN CORPUSCULAR HGB CONC 31 g/dl (31.0-36.0); MEAN CORPUSCULAR VOLUME 87 fL (82-100); MONOCYTES # (AUTO) 0.5 /CMM (0.1-1.30); MONOCYTES % (AUTO) 4.4 % (2.0-12.0); NEUTROPHILS # (AUTO) 10.1 /CMM (1.8-8.9); NEUTROPHILS % (AUTO) 85.4 % (43.0-81.0); PLATELET COUNT (AUTO) 345 /CMM (150-450); RED BLOOD CELL COUNT(AUTO) 3.99 MIL/uL (4.0-5.2); WHITE BLOOD COUNT (AUTO) 11.9 K/uL (4.3-11.0)
[2019-06-06] MEDS ORDERED: DIATR MEGLU/DIATRIZOATE SODIUM 120 ML BOTTLE (GASTROGRAPHIN) ONE (09:50)
--- NOTE | 2019-06-06 13:11 | NUR ---
Transferred to room 113-2 per ACLS protocol, Zita BINGHAM at bedside, belongings transferred, bed bath completed, so far this shift R LEO drainage 15 mL sanguinous, L LEO 7mL serosanguineous rod draining. Attached to 3L O2 via nasal cannula, A/Ox4. Daughter notified of transfer. Seen by surgery INK JET OPERATOR Susie. Marlen for afib cant be given PO, GI series result pending, follow up endorsed. Addendum: 06/06/19 at 1316 by CAROLA ELDER RN NGT connected to low int suction, green drainage, about 5mL so far this shift. afebrile. abdominal dressing intact
--- NOTE | 2019-06-06 13:12 | NUR ---
SOLUTION ADVISOR NOTES Received Patient awake and resting in bed. A/O x 3. VS stable with no acute distress. Breathing even and unlabored on 3LPM via NC with no respiratory distress. Denies pain. No signs and symptoms of pain. Telemonitor in place and patent reading SR with HR-75. LEO drains on bilateral lower left and right quadrants in place and patent with serosanguineous output noted. NGT on right nares intact, patent and on intermittent suction. MORALES PICC line clean, intact, patent and flushing well with D5NS infusing at 75ml/hr. Safety precautions in place. Bed locked and set to lowest position with side rails x 2 up. All needs rendered at this time. Call light within reach. Will continue to monitor. Addendum: 06/06/19 at 1530 by ELVIN PERKINS RN Telemonitor in place and patent reading controlled AFib with HR 69. Todd Cath in place and patent.
--- NOTE | 2019-06-06 18:57 | NUR ---
CLEANER TOUCH UP WORKER CLOSING NOTES Patient awake and resting in bed. A/O x 3. VS stable with no acute distress. Breathing even and unlabored on 3LPM via NC with no respiratory distress. Denies pain. No signs and symptoms of pain. Telemonitor in place and patent reading controlled AFib with HR 77. Todd Cath in place and patent. LEO drains on bilateral lower left and right quadrants in place and patent with serosanguineous output noted. NGT on right nares intact, patent and on intermittent suction. MORALES PICC line clean, intact, patent and flushing well with D5NS infusing at 75ml/hr. Safety precautions in place. Bed locked and set to lowest position with side rails x 2 up. All needs rendered at this time. Call light within reach. Will endorse plan of care to oncoming shift.
--- NOTE | 2019-06-06 19:35 | NUR ---
RN OPENING NOTES RECEIVED REPORT FROM KENNETH OCONNOR. FOUND Pt AWAKE, RESTING IN BED. NO S/S OF ACUTE DISTRESS OR SEVERE SOB NOTED. Pt ON 3L NC SATING WELL. Pt IS A/OX3, VERBAL, ABLE TO MAKE NEEDS KNOWN WITH LITTLE NIUEAN. IV ACCESS ON MORALES PICC LINE WITH IVF D5NS RUNNIING @75ML/HR, INFUSING WELL. FOY CATHETER IN PLACE AND DRAINING WELL. NG TUBE ON INTERMITANT SUCTIONING. SAFETY MEASURES IN PLACE. BED LOW, LOCKED, HOB ELEVATED, SIDE RAILS UP, CALL LIGHT AND BEDSIDE TABLE WITHIN REACH. BED ALARM ON. BSC AT BEDSIDE. WILL CONTINUE TO MONITOR Pt's CONDITION AND SAFETY THROUGHOUT THE NIGHT.
[2019-06-06] MEDS: VANCOMYCIN 1 GM in IV D5W 250 ML IV SCH (21:07)
[2019-06-07] VITALS (8 sets, daily range): BP systolic 104–138; BP diastolic 52–72
[2019-06-07] MEDS: ONDANSETRON HCL/PF 4 MG/2 ML VIAL IVP PRN (00:34)
[2019-06-07] MEDS: MORPHINE SULFATE INJ 2 MG/ML DISP.SYRIN IV PRN ×3 (00:35→21:21)
--- NOTE | 2019-06-07 06:40 | NUR ---
RN CLOSING NOTES DC'd NGT PER AD OPERATIONS COORDINATOR SUHA's ORDER. Pt WILL START ON A CLEAR LIQUID TRIAL STARTING WITH BFAST TODDAY. NO S/S OF ACUTE DISTRESS OR SOB NOTED DURING THE NIGHT. ALL NEEDS MET AND ATTENDED TO. FOY CATHETER OUTPUT: 350CC. Rt LEO DRAIN OUTPUT: 25CC & Lt LEO DRAIN OUTPUT: 60CC. SX DRESSING INTACT NO S/S OF BLEEDING NOTED. TELE READING CONTROLLED AFIB 60s-80s WITH ATOPIC BEAT & BBB's. SAFETY MEASURES IN PLACE. ALL NEEDS MET AND ATTENDED TO. WILL ENDORSE TO KENNETH RN FOR Pt's JUDIE.
[2019-06-07 06:51] LABS: BASOPHILS % (AUTO) 0.2 % (0.0-2.0); EOSINOPHILS % (AUTO) 3.5 % (0.0-6.0); HEMATOCRIT 35 % (33-45); HEMOGLOBIN 11.1 g/dL (11.5-14.8); LYMPHOCYTES # (AUTO) 0.9 /CMM (0.8-4.8); LYMPHOCYTES % (AUTO) 9.7 % (20.0-44.0); MEAN CORPUSCULAR HGB CONC 32 g/dl (31.0-36.0); MEAN CORPUSCULAR VOLUME 88 fL (82-100); MONOCYTES # (AUTO) 0.9 /CMM (0.1-1.30); MONOCYTES % (AUTO) 9.4 % (2.0-12.0); NEUTROPHILS # (AUTO) 7.2 /CMM (1.8-8.9); NEUTROPHILS % (AUTO) 77.2 % (43.0-81.0); PLATELET COUNT (AUTO) 331 /CMM (150-450); RED BLOOD CELL COUNT(AUTO) 4.02 MIL/uL (4.0-5.2); WHITE BLOOD COUNT (AUTO) 9.3 K/uL (4.3-11.0)
[2019-06-07 07:16] LABS: ALBUMIN 1.5 g/dL (3.4-5.0); BILIRUBIN,TOTAL 0.4 mg/dL (0.2-1.0); CALCIUM, SERUM 7.7 mg/dL (8.5-10.1); CREATININE 0.8 mg/dL (0.6-1.3); MAGNESIUM 2.2 mg/dL (1.8-2.4); PHOSPHORUS 2.7 mg/dL (2.5-4.9); POTASSIUM 3.3 mmol/L (3.5-5.1); TOTAL PROTEIN, SERUM 4.7 g/dL (6.4-8.2)
[2019-06-07] MEDS: IV D5/ 0.9% NACL 1,000 ML IV PRN ×2 (07:21→21:34)
--- NOTE | 2019-06-07 07:25 | NUR ---
STAVE AND BOLT EQUALIZER OPENING NOTES RECEIVED PATIENT IN BED, AWAKE, ALERT AND ORIENTED X3, VERBALLY RESPONSIVE AND ABLE TO MAKE NEEDS KNOWS. KAZAKH SPEAKING WITH FEW KYRGYZ, ON O2 VIA NC @ 3LPM, SATURATING WELL. NO SOB NOTED. IV ACCESS ON R U ARM PICC LINE INTACT, PATENT AND FLUSHED WELL WITH ON GOING D5 NS @75 ML/HR NEW BAG HANGING. ON CELERY CUTTER READS AFIB, HR 77 BPM AT THIS TIME. MID ABDOMINAL SURGICAL SITE COVERED WITH DRESSING, NO BLEEDING NOTED ON DRESSING EDGES, ALSO NOTED WITH LEO DRAINS X2, LEFT AND RIGHT SIDE ABDOMEN. FOY CATHETER PATENT AND INTACT, DRAINING CLOUDY YELLOW URINE VIA GRAVITY WITH 150 ML OUTPUT ON THE BAG . SAFETY MEASURES IN PLACE, CALL LIGHT LEFT WITHIN EASY REACH. WILL MONITOR CLOSELY
[2019-06-07] MEDS: MEROPENEM 500 MG in IV NS 0.9% 50 ML IV SCH ×2 (09:19→21:20)
[2019-06-07] MEDS: PANTOPRAZOLE 40 MG VIAL IV SCH ×2 (09:19→21:20)
[2019-06-07] MEDS: POTASSIUM CHLORIDE 20 MEQ TAB.PRT.SR PO SCH ×2 (09:19→10:18)
--- NOTE | 2019-06-07 13:21 | NUR ---
RN NOTES PER BOOKKEEPERS SUPERVISOR DELANEY BORDEN TO UPGRADE PATIENT'S DIET TO FULL LIQUID DIET IF PATIENT TOLERATES CLEAR LIQUID DIET AND TO ADVANCE IT ON SOFT DIET IN AM 06/08/19 IF PATIENT'S TOLERATES FULL LIQUID DIET DURING DINNER.
[2019-06-07] MEDS: DIGOXIN INJ 0.5 MG/2 ML AMPUL IV SCH (13:26)
[2019-06-07] MEDS: WARFARIN SODIUM 2.5 MG TABLET PO SCH (17:33)
--- NOTE | 2019-06-07 17:45 | NUR ---
RN NOTES PER MONUMENTAL STONEMASON SCARLETT SHE WILL COME BY AND CHECK PATIENT TODAY AND INFORMED HER THAT PER MONUMENTAL STONEMASON DELANEY BORDEN SHE IS OK TO WHATEVER ANTIBIOTICS MONUMENTAL STONEMASON SCARLETT WILL RECOMMEND TO THE PATIENT.
--- NOTE | 2019-06-07 18:00 | NUR ---
ZACHERY NOTES R LEO =100 ML SEROUS L LEO = 200 ML SEROSANGUINEOUS
--- NOTE | 2019-06-07 19:11 | NUR ---
RN CLOSING NOTES PATIENT IN BED, IN NO APPARENT DISTRESS NOTED. ON OXYGEN VIA NASAL CANNULA @3 L, SATURATING WELL. NO SOB NOTED. IN CHANGE OF CONDITION DURING AM SHIFT. TROMBONE SLIDE ASSEMBLER NERA CAME BY AND ASSESSED PATIENT AT BEDSIDE. ALL NEEDS MET, KEPT CLEAN AN DRY. SAFETY MEASURES IN PLACED, BED IN LOWEST POSITIONED AND LOCKED. CALL LIGHT WITHIN REACHED. ENDORSED TO PM RN FOR JUDIE
[2019-06-08] VITALS: BP 128/54
[2019-06-08 04:00] VITALS: BP 135/76
[2019-06-08] MEDS: MORPHINE SULFATE INJ 2 MG/ML DISP.SYRIN IV PRN ×3 (05:35→18:40)
--- NOTE | 2019-06-08 06:22 | NUR ---
TELE-1/SAP ANALYST LEFT SIDE LEO DRAIN 100ML SEROUS DRAINAGE. RIGHT SIDE LEO DRAIN 50ML SEROUS DRAINAGE.
[2019-06-08 06:51] LABS: BASOPHILS % (AUTO) 0.3 % (0.0-2.0); EOSINOPHILS % (AUTO) 4.1 % (0.0-6.0); HEMATOCRIT 36 % (33-45); HEMOGLOBIN 11.3 g/dL (11.5-14.8); LYMPHOCYTES % (AUTO) 10.2 % (20.0-44.0); MEAN CORPUSCULAR HGB CONC 31 g/dl (31.0-36.0); MEAN CORPUSCULAR VOLUME 88 fL (82-100); MONOCYTES % (AUTO) 10.4 % (2.0-12.0); NEUTROPHILS # (AUTO) 7.3 /CMM (1.8-8.9); PLATELET COUNT (AUTO) 290 /CMM (150-450); RED BLOOD CELL COUNT(AUTO) 4.12 MIL/uL (4.0-5.2); WHITE BLOOD COUNT (AUTO) 9.8 K/uL (4.3-11.0)
[2019-06-08 06:59] LABS: CALCIUM, SERUM 7.6 mg/dL (8.5-10.1); CREATININE 0.7 mg/dL (0.6-1.3); POTASSIUM 3.4 mmol/L (3.5-5.1)
--- NOTE | 2019-06-08 07:30 | NUR ---
RN NOTES RECEIVED PATIENT IN BED, AWAKE, A/OX4, ABLE TO MAKE NEEDS KNOWN. WITH OXYGEN SUPPORT VIA NASAL CANNULA AT 3LPM. WITH COMPLAINTS OF PAIN 6/10, PATIENT ASKING FOR PAIN MEDICATION- WILL ADMINISTER MEDICATION WHEN DUE AFIB ON THE MONITOR WITH HR ON THE 8OS. BILATERAL LEO DRAIN IN PLACE BOTH WITH SEROUS DRAINAGE. FOY CATHETER IN PLACE DRAINING TO CLEAR YELLOW URINE. PATIENT ENCOURAGE TO CALL FOR HELP AND ASSISTANCE. TO VERBALIZE FEELING AND CONCERNS. CALL LIGHT PLACED WITHIN REACH. SAFETY MEASURES IN PLACE. BED IN LOW AND LOCKED POSITION. WILL CONTINUE TO MONITOR
[2019-06-08] MEDS ORDERED: FUROSEMIDE 100 MG/10 ML VIAL IV ONE (08:00)
[2019-06-08] MEDS: PANTOPRAZOLE 40 MG VIAL IV SCH ×2 (08:56→21:32)
[2019-06-08] MEDS: MEROPENEM 500 MG in IV NS 0.9% 50 ML IV SCH ×2 (08:57→21:04)
[2019-06-08] MEDS: POTASSIUM CHLORIDE 20 MEQ TAB.PRT.SR PO SCH ×2 (10:33→12:43)
[2019-06-08] MEDS: DIGOXIN 0.25 MG TABLET PO SCH (12:44)
[2019-06-08 16:00] VITALS: BP 128/68
--- NOTE | 2019-06-08 16:00 | NUR ---
RN NOTES LEFT LEO DRAIN 50CC. RIGHT LEO DRAIN 75CC
--- NOTE | 2019-06-08 16:00 | NUR ---
RN NOTES PATIENT TRANSFERRED TO MED SURG FLOOR ROOM 327. NOT ON ANY FORM OF DISTRESS. ABLE TO TOLERATE THE TRANSPORT WELL. HANDS OFF
[2019-06-08] MEDS: WARFARIN SODIUM 2.5 MG TABLET PO SCH (17:14)
--- NOTE | 2019-06-08 18:45 | NUR ---
MS/RN Closing Note Patient in bed watching TV comfortably, c/o back pain and given morphine 2mg. Skin is warm to touch, kept clean/dry, intact piccline and good patent with NS flash. Respiratory even and unlabored wth room air. Keep remain lower bed of position with locked wheel a nd elevated HOB. Call light within reach, all needs met. Will endorse to material handler 2nd shift. Right LEO drain 5 ml, Left LEO drain 60 ml
--- NOTE | 2019-06-08 19:55 | NUR ---
RN OPENING NOTES RECEIVED REPORT FROM [facility]. FOUND Pt AWAKE, RESTING IN BED. Pt IS A/OX3, HUNGARIAN SPEAKING, UNDERSTANDS SOME NEPALI. FOY CATHETER IS IN PLACE, DRAINING WELL. MID ABD'L SX DRESSING IS STILL INTACT AND DRY. LEO DRAIN ON RT & LT SIDE, WITH SOME DRAINAGE STILL NOTED. IV ACCESS ON MORALES PICCLINE @TKO. SAFETY MEASURES IN PLACE. BED LOW, LOCKED, HOB ELEVATED, SIDE RAILS UP, CALL LIGHT AND BEDSIDE TABLE WITHIN REACH. BED ALARM ON. WILL CONTINUE TO MONITOR Pt's CONDITION AND SAFETY THROUGHOUT THE NIGHT.
[2019-06-08 20:30] VITALS: BP 122/53
[2019-06-08 20:53] VITALS: BP 122/53
[2019-06-09 03:00] VITALS: BP 116/66
[2019-06-09] MEDS: ONDANSETRON HCL/PF 4 MG/2 ML VIAL IVP PRN (03:06)
[2019-06-09] MEDS: MORPHINE SULFATE INJ 2 MG/ML DISP.SYRIN IV PRN ×3 (03:13→20:22)
[2019-06-09 06:30] LABS: BASOPHILS % (AUTO) 0.3 % (0.0-2.0); EOSINOPHILS % (AUTO) 3.3 % (0.0-6.0); HEMATOCRIT 37 % (33-45); HEMOGLOBIN 11.7 g/dL (11.5-14.8); LYMPHOCYTES # (AUTO) 1.3 /CMM (0.8-4.8); LYMPHOCYTES % (AUTO) 11.6 % (20.0-44.0); MEAN CORPUSCULAR HGB CONC 31 g/dl (31.0-36.0); MEAN CORPUSCULAR VOLUME 87 fL (82-100); MONOCYTES % (AUTO) 8.7 % (2.0-12.0); NEUTROPHILS # (AUTO) 8.7 /CMM (1.8-8.9); NEUTROPHILS % (AUTO) 76.1 % (43.0-81.0); PLATELET COUNT (AUTO) 283 /CMM (150-450); RED BLOOD CELL COUNT(AUTO) 4.31 MIL/uL (4.0-5.2); WHITE BLOOD COUNT (AUTO) 11.5 K/uL (4.3-11.0)
[2019-06-09 06:34] LABS: ALBUMIN 1.5 g/dL (3.4-5.0); BILIRUBIN,TOTAL 0.3 mg/dL (0.2-1.0); CALCIUM, SERUM 7.3 mg/dL (8.5-10.1); CREATININE 0.7 mg/dL (0.6-1.3); MAGNESIUM 1.5 mg/dL (1.8-2.4); PHOSPHORUS 2.6 mg/dL (2.5-4.9); POTASSIUM 3.7 mmol/L (3.5-5.1); TOTAL PROTEIN, SERUM 4.7 g/dL (6.4-8.2)
--- NOTE | 2019-06-09 06:55 | NUR ---
RN CLOSING NOTES NO SIGNIFICANT CHANGES IN Pt's CONDITION. Pt IS RESTING IN BED WITH UNLABORED RESPIRATIONS AND EQUAL CHEST RISE AND FALL. ALL NEEDS MET AND ATTENDED TO. SAFETY MEASURES IN PLACE. WILL ENDORSE TO DAYSHIFT RN FOR Pt's JUDIE.
--- NOTE | 2019-06-09 07:38 | NUR ---
MS RN NOTES RECEIVED PATIENT IN BED, AWAKE, A/O X3. PATIENT BREATHING ON ROOM AIR; BREATHING EVEN AND UNLABORED WITH NO SOB PRESENT AT THIS TIME. FOY CATHETER IS IN PLACE, DRAINING WELL. MID ABD'L SX DRESSING IS STILL INTACT AND DRY. LEO DRAIN ON RT & LT SIDE, WITH SOME DRAINAGE STILL NOTED. MORALES PICC LINE PRESENT AND INTACT. FOY CATH IN PLACE DRAINING TEA-COLORED URINE. SAFETY PRECAUTIONS IN PLACE; BED IN LOW POSITION AND LOCKED, RAILS UP X2, CALL LIGHT WITHIN REACH. WILL CONTINUE TO MONITOR PATIENT.
[2019-06-09 08:00] VITALS: BP 122/57
[2019-06-09] MEDS: MEROPENEM 500 MG in IV NS 0.9% 50 ML IV SCH ×2 (08:23→20:45)
[2019-06-09] MEDS: PANTOPRAZOLE 40 MG TABLET.DR PO SCH (08:52)
[2019-06-09] MEDS: Magnesium 1GM/D5W 100ML PREMIX 100 ML IV SCH ×2 (09:40→10:36)
[2019-06-09] MEDS: DIGOXIN 0.25 MG TABLET PO SCH (13:00)
--- NOTE | 2019-06-09 13:22 | NUR ---
MS RN NOTES DIGOXIN NON-ADMINISTERED. PATIENT HAS A MANUAL HR AT 59.
[2019-06-09 16:00] VITALS: BP 137/50
[2019-06-09] MEDS ORDERED: WARFARIN SODIUM 2 MG TABLET PO SCH (17:00)
--- NOTE | 2019-06-09 18:57 | NUR ---
MS RN CLOSING NOTES PATIENT IN BED, AWAKE, A/O X3. PATIENT BREATHING ON ROOM AIR; BREATHING EVEN AND UNLABORED WITH NO SOB PRESENT AT THIS TIME. MID ABD'L SX DRESSING IS STILL INTACT AND DRY. LEO DRAIN ON RT (10 MLS) & LT SIDE (190 MLS), WITH SOME DRAINAGE STILL NOTED. MORALES PICC LINE PRESENT AND INTACT. FOY CATH IN PLACE DRAINING TEA-COLORED URINE (350 FOR THE SHIFT). ALL THE NEEDS ATTENDED TOO THROUGHOUT THE DAY. SAFETY PRECAUTIONS IN PLACE; BED IN LOW POSITION AND LOCKED, RAILS UP X2, CALL LIGHT WITHIN REACH. WILL ENDORSE TO SHELLFISH CHECKER NURSE.
--- NOTE | 2019-06-09 19:30 | NUR ---
MS RN NOTES RECEIVED ON BED A/O X3,BREATHING NON LABORED,O2 AT 2L/NC IN USED.WITH RIGHT UPPER ARM PICC LINE FOR MEDS.S/P EXPLOR LAP LAST 06/02,MID ABDOMEN SURGICAL INCISION INTACT AND DRY.LEO DRAINS IN PLACE,NO OUTPUT AT THE MOMENT.FOY CATH IN PLACE DRAINING YELLOWISH OUTPUT.ABLE TO MOVE IN BED.CALL LIGHT IN REACH,NEEDS ANTICIPATED.
[2019-06-09 20:00] VITALS: BP 116/62
--- NOTE | 2019-06-09 20:22 | NUR ---
MS RN NOTES C/O RIGHT UPPER BACK PAIN,MEDICATED WITH MORPHINE 2MG IV ORDERED
[2019-06-10] MEDS: MORPHINE SULFATE INJ 2 MG/ML DISP.SYRIN IV PRN (05:43)
--- NOTE | 2019-06-10 05:43 | NUR ---
MS RN NOTES C/O ABDOMINAL PAIN 8/10 ON PAIN SCALE,MORPHINE 2MG IV GIVEN ORDERED.CENTRAL LINE CARE RENDERED.
--- NOTE | 2019-06-10 06:35 | NUR ---
MS RN NOTES IN BED,APPEARS SLEEPY DUE TO MORPHINE FOR PAIN MANAGEMENT.LEO DRAINS CLEAR 70ML OUTPUT.REPOSITION PER PROTOCOL,IVF AT TKO RATE.CALL LIGHT IN REACH,NEEDS ATTENDED
[2019-06-10 06:57] LABS: BASOPHILS % (AUTO) 0.4 % (0.0-2.0); EOSINOPHILS % (AUTO) 2.8 % (0.0-6.0); HEMATOCRIT 38 % (33-45); HEMOGLOBIN 11.8 g/dL (11.5-14.8); LYMPHOCYTES # (AUTO) 1.3 /CMM (0.8-4.8); LYMPHOCYTES % (AUTO) 11.8 % (20.0-44.0); MEAN CORPUSCULAR HGB CONC 31 g/dl (31.0-36.0); MEAN CORPUSCULAR VOLUME 86 fL (82-100); MONOCYTES # (AUTO) 0.7 /CMM (0.1-1.30); MONOCYTES % (AUTO) 6.5 % (2.0-12.0); NEUTROPHILS # (AUTO) 8.7 /CMM (1.8-8.9); NEUTROPHILS % (AUTO) 78.5 % (43.0-81.0); PLATELET COUNT (AUTO) 317 /CMM (150-450); RED BLOOD CELL COUNT(AUTO) 4.44 MIL/uL (4.0-5.2); WHITE BLOOD COUNT (AUTO) 11.1 K/uL (4.3-11.0)
[2019-06-10 07:11] LABS: CALCIUM, SERUM 7.6 mg/dL (8.5-10.1); CARBON DIOXIDE 33 mmol/L (21-32); CHLORIDE 103 mmol/L (98-107); CREATININE 0.5 mg/dL (0.6-1.3); GLUCOSE 88 mg/dL (74-106); MAGNESIUM 1.9 mg/dL (1.8-2.4); PHOSPHORUS 3.2 mg/dL (2.5-4.9); POTASSIUM 3.9 mmol/L (3.5-5.1); SODIUM SERUM 140 mmol/L (136-145); UREA NITROGEN, BLOOD 8 mg/dL (7-18)
[2019-06-10 07:58] VITALS: BP 120/59
--- NOTE | 2019-06-10 08:00 | NUR ---
RN NOTES RECEIVED PATIENT IN THE BED ROMANSH SPEAKER FEMALE ON POST UP BOWEL OBSTRUCTION SURGERY. PATIENT ON O2 2LNC, NO ACUTE RESPIRATORY DISTRESS. WAS COMPLAINING OF PAIN LOWER ABDOMEN 3/10, BUT REFUSED PAIN MEDICATION AT THIS TIME BECAUSE PAIN TOLERABLE. ABDOMINAL DRESSING INTACT. PATIENT HAS LEFT AND RIGHT KEL PRIDE EMPTIED LEFT 58 ML. FOY CATHETER INTACT DRAINING LIGHT YELLOW OUTPUT. V/S STABLE, PICC ,LINE ON RIGHT UA INTACT. INFUSING MERREM 100 ML/HR. CALL LIGHT WITHIN TO REACH. ASSIST PATIENT TURN AND REPOSTION Q 2 HR. PATIENT TOLERATED BREAKFAST 30%, CALL LIGHT WITHIN TO REACH. CONTINUED MONITORING.
[2019-06-10 08:01] VITALS: BP 120/59
[2019-06-10] MEDS: PANTOPRAZOLE 40 MG TABLET.DR PO SCH (08:24)
[2019-06-10] MEDS: MEROPENEM 500 MG in IV NS 0.9% 50 ML IV SCH ×2 (08:25→20:38)
--- NOTE | 2019-06-10 09:10 | NUR ---
RN NOTES PATIENT WITH THE PT,V/S STABLE, REFUSED DIZZINESS. AMBULATED USING WALKER 20 FEET, AND SITTING IN THE CHAIR.
[2019-06-10] MEDS: HYDROCODONE/APAP 5/325MG 1 EACH TABLET PO PRN ×2 (10:49→20:59)
--- NOTE | 2019-06-10 10:49 | NUR ---
rn notes Administered narco 5/325 mg po prn for abdomen 06/14 per patient request, v/s taken bp 117/ 60, p-70, also get order remove Todd cathected per hospitalist Ralph CHAMORRO orders. order taken and carried out.
--- NOTE | 2019-06-10 11:00 | NUR ---
RN NOTES REMOVED FOY CATHETER AT THIS TIME, PATIENT TOLERATED WELL, OUTPUT WAS 200 ML, ALSO DRAIN LEFT AND RIGHT LEO, TURN AND REPOSTION PATIENT AT THIS TIME, PATIENT PASSING GAS,, CHANGE DIET FOR SOFT WELL CHAPPED BECAUSE OF NO DENTURE..
[2019-06-10] MEDS: DIGOXIN 0.25 MG TABLET PO SCH (13:41)
--- NOTE | 2019-06-10 13:44 | NUR ---
RN NOTES DRESSING CHANGED AT THIS TIME, INCISION INTACT, EDGES PINK, NO REDNESS. PATIENT HAS ACTIVE BOWEL SOUNDS FOUR QUADRANTS OF ABDOMEN. MEDICATION WERE ADMINISTERED FOR PAIN EFFECTIVE, ALSO ADMINISTERED SCHEDULED MEDICATION. ASSIST PATIENT TURN AND REPOSTION Q 2HR.
--- NOTE | 2019-06-10 16:30 | NUR ---
RN NOTES SEEN PATIENT BY SURGEON Dr WILSON GET VERBAL ORDER STAPLE REMOVED AND PATIENT READY GO HOME.
--- NOTE | 2019-06-10 16:45 | NUR ---
RN NOTES REMOVED 9 XAVIER, PATIENT TOLERATED WELL, APPLIED STERIL DRESSING. PATIENT AMBULATED IN THE HALLWAY, AND URINATED X1 USING BED SIDE COMMODE. Dr WILSON SPOKE WITH THE PATIENTS DAUGHTER. PATIENT WILL GO HOME WITH LEO'S, AND FOLLOW SURGEON IN 2 WEEKS.
--- NOTE | 2019-06-10 18:00 | NUR ---
MS RN CLOSING NOTES PT STABLE IN BED AT THIS TIME, VS STABLE, DENIES PAIN, DRAIN RIGHT AND LEFT LEO'S, PT USING BEDSIDE COMMODE, HAD BM. ACTIVE BOWEL SOUNDS IN ALL FOUR QUADRANTS. PT TOLERATED DINNER WELL. BED IN LOCKED LOWEST POSITION, SIDE RAILS UP X 2, CALL LIGHT WITHIN REACH, WILL ENDORSE TO NIGHT NURSE FOR JUDIE
--- NOTE | 2019-06-10 19:15 | NUR ---
MS RN OPENING NOTES PM BEDSIDE REPORT RECIEVED FROM SP BINGHAM. PATIENT LITHUANIAN SPEAKING, PRIMARILY REVIEWED POC WITH SP BINGHAM TUBER MACHINE OPERATOR HELPER. PATIENT IS POST OP EXPL LAP FROM 06/02 PLAN FOR POTENTIAL DISCHARGE FOR TOMORROW. PATIENT REPORTS MILD PAIN TO ABD. DRESSING SEEN TWO LEO DRAINS SEEN ABD DRESSING CDI WITH NO S/S OF BLEEDING. LEO DRAINING SEROUS FLUID. PT HAS BEDSIDE COMMODE. PT HAS ACTIVE BOWEL SOUNDS IN ALL FOUR QUADRANTS. PT TOLERATING FOOD WELL PER REPORT. BED IN LOCKED LOWEST POSITION, SIDE RAILS UP X 2, CALL LIGHT WITHIN REACH, REVIEWED POC QUESTIONS CONCNERNS ADDRESSED. REVIEWED PAIN MANAGEMENT PLAN QUESTIONS CONCERNS ADDRESSED. WILL CONT TO MONITOR.
[2019-06-10 20:00] VITALS: BP 137/73
[2019-06-11] MEDS: HYDROCODONE/APAP 5/325MG 1 EACH TABLET PO PRN (03:14)
[2019-06-11 07:19] LABS: BASOPHILS # (AUTO) 0.1 /CMM (0.0-0.2); BASOPHILS % (AUTO) 0.8 % (0.0-2.0); EOSINOPHILS % (AUTO) 4.2 % (0.0-6.0); HEMATOCRIT 38 % (33-45); HEMOGLOBIN 12.1 g/dL (11.5-14.8); LYMPHOCYTES # (AUTO) 1.6 /CMM (0.8-4.8); LYMPHOCYTES % (AUTO) 14.9 % (20.0-44.0); MEAN CORPUSCULAR HGB CONC 32 g/dl (31.0-36.0); MEAN CORPUSCULAR VOLUME 85 fL (82-100); MONOCYTES # (AUTO) 0.8 /CMM (0.1-1.30); MONOCYTES % (AUTO) 7.5 % (2.0-12.0); NEUTROPHILS # (AUTO) 7.9 /CMM (1.8-8.9); NEUTROPHILS % (AUTO) 72.6 % (43.0-81.0); PLATELET COUNT (AUTO) 366 /CMM (150-450); RED BLOOD CELL COUNT(AUTO) 4.47 MIL/uL (4.0-5.2); WHITE BLOOD COUNT (AUTO) 10.9 K/uL (4.3-11.0)
[2019-06-11 07:34] LABS: CALCIUM, SERUM 7.6 mg/dL (8.5-10.1); CREATININE 0.8 mg/dL (0.6-1.3); POTASSIUM 3.7 mmol/L (3.5-5.1)
--- NOTE | 2019-06-11 07:57 | NUR ---
RN NOTE: OPENING RECEIVED PATIENT IN BED, AWAKE, AOX3, FAROESE AND KYRGYZ SPEAKING. DENIES PAIN. NO S/S OF DISTRESS NOTED. R PICC LINE INTACT. LEFT AND RIGHT LEO INTACT AND DRAINING. TO FACETIME WITH MD BEFORE DC. VSS. BED IN LOW POSITION WITH 2 SIDE RAILS UP FOR SAFETY. CALL LIGHT WITHIN REACH. NEEDS ATTENDED TO.
[2019-06-11 08:00] VITALS: BP 125/60
[2019-06-11] MEDS: PANTOPRAZOLE 40 MG TABLET.DR PO SCH (09:06)
[2019-06-11] MEDS: DIGOXIN 0.25 MG TABLET PO SCH (12:31)
[2019-06-11] MEDS ORDERED: WARF-68 PO (12:50)
[2019-06-11] MEDS ORDERED: Digoxin PO (12:50)
--- NOTE | 2019-06-11 16:45 | NUR ---
rn notes patient discharged at this time, all belongings with her. Patient refused photo. All discharge papers signed and patients family had no further questions regarding the d/c instructions. Patient signed belongings lists and her ipad and phone and 2 rings with a necklace with her when she went inside the private car that her daughter was driving.
== END 2019-06-11 16:45 | disposition home health service (06) | DRG 853 ==
LOC: ER 23:33 → MED 06-03 00:57 → TELE 06-03 05:14 → ICU 06-03 19:53 → TELE1 06-06 12:41 → MEDSG1 06-08 11:29 → MED 06-08 16:00
PROVIDERS: ADMIT Nurse Practitioner Acute Care; ATTEND Hospitalist
PROC: 0DU707Z Supplement Stomach, Pylorus with Autologous Tissue Substitute, Open Approach (ICD-10-PCS; principal; 2019-06-03)
PROC: 0DB60ZX Excision of Stomach, Open Approach, Diagnostic (ICD-10-PCS; 2019-06-03)
PROC: 0FB00ZX Excision of Liver, Open Approach, Diagnostic (ICD-10-PCS; 2019-06-03)
PROC: 0WQF0ZZ Repair Abdominal Wall, Open Approach (ICD-10-PCS; 2019-06-03)
PROC: 02HV33Z Insertion of Infusion Device into Superior Vena Cava, Percutaneous Approach (ICD-10-PCS; 2019-06-03)
PROC: B548ZZA Ultrasonography of Superior Vena Cava, Guidance (ICD-10-PCS; 2019-06-03)
DX: A41.9 Sepsis, unspecified organism (principal); K25.5 Chronic or unspecified gastric ulcer with perforation; G93.41 Metabolic encephalopathy; J96.01 Acute respiratory failure with hypoxia; N17.0 Acute kidney failure with tubular necrosis; R65.21 Severe sepsis with septic shock; K65.9 Peritonitis, unspecified; E87.2 Acidosis; I48.20 Chronic atrial fibrillation, unspecified; J98.11 Atelectasis; I50.42 Chronic combined systolic (congestive) and diastolic (congestive) heart failure; E83.42 Hypomagnesemia; E87.6 Hypokalemia; E86.0 Dehydration; I25.10 Atherosclerotic heart disease of native coronary artery without angina pectoris; I25.2 Old myocardial infarction; I27.20 Pulmonary hypertension, unspecified; E78.5 Hyperlipidemia, unspecified; K21.9 Gastro-esophageal reflux disease without esophagitis; N28.1 Cyst of kidney, acquired; Z95.1 Presence of aortocoronary bypass graft; Z87.891 Personal history of nicotine dependence; Z87.442 Personal history of urinary calculi; Z79.01 Long term (current) use of anticoagulants; Z86.73 Personal history of transient ischemic attack (TIA), and cerebral infarction without residual deficits; D47.3 Essential (hemorrhagic) thrombocythemia; I11.0 Hypertensive heart disease with heart failure; I34.0 Nonrheumatic mitral (valve) insufficiency; K43.2 Incisional hernia without obstruction or gangrene; I35.0 Nonrheumatic aortic (valve) stenosis; K29.50 Unspecified chronic gastritis without bleeding
CPT/HCPCS: 31720; 36415; 36569; 36600; 71045-TC; 74246-TC; 80048-TC; 80053-TC; 80061-TC; 80076-TC; 80202-TC; 82803-TC; 83605-TC; 83690-TC; 83735-TC; 84100-TC; 84443-TC; 84484-TC; 85025-TC; 85610-TC; 86850-TC; 87040-TC; 87081-TC; 87086-TC; 88302-TC; 88305-TC; 88307-TC; 88313-TC; 88342; 92526; 92611-TC; 93307-TC; 94002-TC; 94003-TC; 94760-TC; 97110-TC; 97116-TC; 97530-TC; A4216; A4217; A6209; C1751; C9113; G0378; J0282; J0330; J0744; J1160; J1170; J1450; J1885; J1940; J2185; J2270; J2370; J2405; J3010; J3370; J3475; J3480; J3490; J7030; J7040; J7042; J7050; J7060; Q9963; Q9967

== ENCOUNTER 2020-07-10 08:23 | Inpatient (IN) | payer MEDICARE, OTHER ==
[~2020-07-10] VITALS: Ht 149.9 cm; Wt 43.7 kg
[~2020-07-10 08:23] MED LIST: ATOR20TA PO; Digoxin PO; FURO40TA5 PO; LISI-768 PO; MAGN400T26 PO; WARF-68 PO
[2020-07-10] MEDS ORDERED: diphenhydrAMINE HCL 50 MG/ML VIAL ONE (08:35)
[2020-07-10] MEDS ORDERED: LORAZEPAM INJ 2 MG/ML VIAL ONE (08:36)
[2020-07-10] MEDS ORDERED: APIX2.5T PO ×2 (08:39→14:37)
[2020-07-10] MEDS ORDERED: AMYL1CAP56 PO (08:39)
[2020-07-10] MEDS ORDERED: DIGO250T PO ×2 (08:39→14:37)
[2020-07-10] MEDS ORDERED: FERR325T24 PO (08:39)
[2020-07-10] MEDS ORDERED: ICOS1CAP PO (08:39)
[2020-07-10] MEDS ORDERED: ASCO500T20 PO (08:39)
[2020-07-10] MEDS ORDERED: LOSA50TA39 PO (08:39)
[2020-07-10] MEDS ORDERED: SPIR25TA6 PO (08:39)
[2020-07-10] MEDS ORDERED: PARO20TA7 PO (08:39)
[2020-07-10] MEDS ORDERED: SUCR1TAB PO (08:39)
[2020-07-10] MEDS ORDERED: PANT40TA49 PO (08:39)
[2020-07-10] MEDS ORDERED: METO25TA20 PO (08:39)
[2020-07-10] MEDS ORDERED: CARV6.252 PO (08:39)
[2020-07-10] MEDS ORDERED: POTA8TAB3 PO (08:39)
[2020-07-10] MEDS ORDERED: RANO500T6 PO (08:39)
[2020-07-10 08:50] LABS: BASOPHILS # (AUTO) 0.1 /CMM (0.0-0.2); BASOPHILS % (AUTO) 0.5 % (0.0-2.0); HEMATOCRIT 42 % (33-45); HEMOGLOBIN 13.4 g/dL (11.5-14.8); LYMPHOCYTES # (AUTO) 1.4 /CMM (0.8-4.8); LYMPHOCYTES % (AUTO) 11.3 % (20.0-44.0); MEAN CORPUSCULAR HGB CONC 32 g/dl (31.0-36.0); MEAN CORPUSCULAR VOLUME 87 fL (82-100); MONOCYTES # (AUTO) 0.5 /CMM (0.1-1.30); MONOCYTES % (AUTO) 3.9 % (2.0-12.0); NEUTROPHILS # (AUTO) 10.7 /CMM (1.8-8.9); NEUTROPHILS % (AUTO) 84.3 % (43.0-81.0); PLATELET COUNT (AUTO) 284 /CMM (150-450); RED BLOOD CELL COUNT(AUTO) 4.81 MIL/uL (4.0-5.2); WHITE BLOOD COUNT (AUTO) 12.7 K/uL (4.3-11.0)
[2020-07-10 08:58] LABS: CARBON DIOXIDE 20 mmol/L (21-32); CHLORIDE 105 mmol/L (98-107); CREATININE 1.2 mg/dL (0.6-1.3); GLUCOSE 120 mg/dL (74-106); POTASSIUM 3.4 mmol/L (3.5-5.1); SODIUM SERUM 137 mmol/L (136-145); UREA NITROGEN, BLOOD 13 mg/dL (7-18)
--- NOTE | 2020-07-10 08:59 | NUR ---
PATIENT TAEKN FOR CT
[2020-07-10] MEDS ORDERED: LORAZEPAM INJ 2 MG/ML VIAL IV ONE (09:00)
[2020-07-10] MEDS ORDERED: diphenhydrAMINE HCL 50 MG/ML VIAL IV ONE (09:00)
[2020-07-10 09:07] LABS: SERUM AMMONIA 27 umol/L (11-32)
[2020-07-10 09:13] LABS: ALANINE AMINOTRANSFERASE 53 U/L (12-78); ALBUMIN 3.2 g/dL (3.4-5.0); ALCOHOL, BLOOD < 3 mg/dL (0-0); ALKALINE PHOSPHATASE 166 U/L (46-116); ASPARTATE AMINOTRANSFERASE 41 U/L (15-37); BILIRUBIN,DIRECT 0.2 mg/dL (0.0-0.2); BILIRUBIN,TOTAL 0.5 mg/dL (0.2-1.0); TOTAL PROTEIN, SERUM 6.9 g/dL (6.4-8.2)
[2020-07-10 09:30] LABS: THYROID STIMULATING HORMONE 5.369 uIU/mL (0.358-3.74)
[2020-07-10] MEDS ORDERED: METOPROLOL TARTRATE INJ 5 MG/5 ML AMPUL IV ONE (09:30)
[2020-07-10 09:41] LABS: BILIRUBIN,URINE Negative (NEGATIVE); COLOR,URINE YELLOW (YELLOW); LEUKOCYTE ESTERASE ,URINE Trace (NEGATIVE); NITRITE, URINE Negative (NEGATIVE); PH,URINE 5.5 (5.0-8.0); PROTEIN,URINE 100 mg/dl (NEGATIVE); UGLUCOSE Negative (NEGATIVE); UROBILINOGEN,URINE 0.2 EU/dL (0.2)
[2020-07-10 09:42] LABS: BACTERIA,URINE Few /HPF (None Seen); SQUAMOUS EPITHELIAL CELL,UR Few /HPF (None Seen)
[2020-07-10] MEDS ORDERED: METOPROLOL TARTRATE INJ 5 MG/5 ML AMPUL ONE (09:47)
--- NOTE | 2020-07-10 10:21 | NUR ---
covid swabs done and sent to the lab
--- NOTE | 2020-07-10 10:27 | NUR ---
bed 309-1
[2020-07-10] MEDS ORDERED: ENOXAPARIN SODIUM 40 MG/0.4 ML DISP.SYRIN SQ ONE (10:33)
[2020-07-10] MEDS: ENOXAPARIN SODIUM 40 MG/0.4 ML DISP.SYRIN SQ SCH (10:33)
[2020-07-10] MEDS ORDERED: FUROSEMIDE 40 MG/4 ML VIAL IV ONE (11:00)
--- NOTE | 2020-07-10 11:00 | NUR ---
report given to receiving nurse
[2020-07-10] MEDS ORDERED: FUROSEMIDE 40 MG/4 ML VIAL ONE (11:09)
--- NOTE | 2020-07-10 11:30 | NUR ---
the patient taken to 309-1 per acls protocol
--- NOTE | 2020-07-10 12:00 | NUR ---
Helen the daughter in-law took patient`s personal medications home
[2020-07-10 12:30] VITALS: BP 108/64
[2020-07-10] MEDS ORDERED: ONDANSETRON HCL/PF 4 MG/2 ML VIAL IVP PRN (13:00)
[2020-07-10] MEDS ORDERED: Z GUARD REMEDY 2 OZ OINT TP PRN (13:00)
[2020-07-10] MEDS ORDERED: MAGNESIUM HYDROXIDE 30 ML UDC PO PRN (13:00)
[2020-07-10] MEDS ORDERED: ACETAMINOPHEN 325 MG TABLET PO PRN (13:00)
[2020-07-10] MEDS ORDERED: HYDROCODONE/APAP 5/325MG TABLET PO PRN (13:00)
[2020-07-10] MEDS ORDERED: MAG HYDROX/AL HYDROX/SIMETH 30 ML UDC PO PRN (13:00)
[2020-07-10] MEDS ORDERED: ZOLPIDEM TARTRATE 5 MG TABLET PO PRN (13:00)
--- NOTE | 2020-07-10 13:18 | NUR ---
TELE ADMITTING NOTES PT ADMITTED TO UNIT AT 1120 VIA GURNEY ACCOMPANIED BY Lizy MCCARTHY. PT IS A/O X1-2 TO NAME AND PERSON. CZECH SPEAKING. CONFUSED AT THIS TIME. REDIRECTED AND ORIENTED TO STAFF AND UNIT. PT ON ROOM AIR, TOLERATED WELL WITH SPO2 OF 96% NOTED. V/S TAKEN STABLE AND RECORDED. PT PLACED ON EXTERNAL MONITOR WITH CURRENT READING OF A-FIB CONTROLLED WITH HR ON THE 80'S AT THIS TIME, NO CARDIAC DISTRESS OBSERVED. IV ACCESS NOTED ON LFA g#20 INTACT, PATENT AND FLUSHES WELL. ABDOMEN SOFT, NON-DISTENDED WITH BOWEL SOUNDS PRESENT. LUNGS CLEAR ON AUSCULTATION. SAFETY MEASURES IMPLEMENTED: BED PLACED IN LOWEST LOCKED POSITION WITH SR UP X3, BED ALARM ON AND CALL LIGHT W/IN EASY REACH. INFORMED DR BRAMBILA OF PT'S ADMISSION TO UNIT. ORDERS MADE AND CARRIED OUT. WILL CONTINUE TO MONITOR.
--- NOTE | 2020-07-10 14:42 | NUR ---
RN NOTES PT C/O HEADACHE, PRN TYLENOL 650MG PO GIVEN AT 1434. WILL CONTINUE TO MONITOR PT.
[2020-07-10 16:00] VITALS: BP 107/56
--- NOTE | 2020-07-10 17:05 | NUR ---
RN NOTES PT NOTED WITH TROPONIN OF 0.081 THIS AFTERNOON FROM 0.049 THIS MORNING, DR MCKENNA MADE AWARE WITH NO NEW ORDER MADE. WILL CONTINUE TO MONITOR.
--- NOTE | 2020-07-10 17:31 | NUR ---
RN NOTES PT NOTED WITH LOW POTASSIUM 3.4, DR BRAMBILA MADE AWARE WITH ORDER TO GIVE K-DUR 40MEQ. WILL CARRY OUT ORDER.
--- NOTE | 2020-07-10 17:42 | NUR ---
PRELIMINARY ECHO RESULTS SHOWED EF 30-35%. ADVISED RN.
--- NOTE | 2020-07-10 17:43 | NUR ---
RN DISCHARGED NOTES PT DISCHARGED HOME WITH HH IN STABLE CONDITION. PT IS A/O X4. ABLE TO MAKE NEEDS KNOWN. V/S TAKEN, STABLE AND RECORDED. PHOTOS OF SKIN ISSUES TAKEN AND FILED IN HER CHART. IV ACCESS ON RIGHT WRIST REMOVED WITH NO BLEEDING NOTED, DRY DRESSING APPLIED AT SITE. HEALTH TEACHINGS /DISCHARGED INSTRUCTIONS AND CLINIC APPOINTMENT ON 07/17/[address] LOERA [address] [facility] EXPLAINED AND SHE VERBALIZED UNDERSTANDING. PT LEFT UNIT AT 1730 VIA GURNEY ACCOMPANIED BY 2 EMT'S FROM [facility]. AND DARON REILLY AWARE OF DISCHARGE. Addendum: 07/10/20 at 1841 by LAXMI FORD RN ERROR: WRONG PATIENT. SORRY!
[2020-07-10] MEDS ORDERED: POTASSIUM CHLORIDE 20 MEQ TAB.PRT.SR PO ONE (18:00)
--- NOTE | 2020-07-10 18:45 | NUR ---
SHOER CLOSING NOTES PT IN BED AWAKE AT THIS TIME WITH DAUGHTER AT BEDSIDE. PT IS A/O X2-3 NOW. ABLE TO MAKE NEEDS KNOWN.PT QUIET AND CALM AT THIS TIME. ON ROOM AIR, TOLERATED WELL WITH NO SOB NOTED. ON EXTERNAL MONITOR WITH CURRENT READING OF A-FIB CONTROLLED WITH HR ON THE 77'S AT THIS TIME, NO CARDIAC DISTRESS VOICED. IV ACCESS ON LFA g#20 INTACT, PATENT AND FLUSHES WELL. ALL NEEDS AND CARE ATTENDED WELL. SAFETY MEASURES MAINTAINED: BED IN LOWEST LOCKED POSITION WITH SR UP X3, BED ALARM ON AND CALL LIGHT W/IN EASY REACH. WILL ENDORSE JUDIE TO NIGHT NURSE.
[2020-07-10 20:00] VITALS: BP 99/51
[2020-07-11] VITALS: BP 101/54
[2020-07-11 04:00] VITALS: BP 97/51
--- NOTE | 2020-07-11 05:58 | NUR ---
RN CARDIOVASCULAR NOTES AWAKE & RESPONSIVE. NOT IN ANY DISTRESS. NO SOB NOTED. DENIES ANY PAIN OR DISCOMFORT AT THIS TIME. WITH IV-HL PATENT & INTACT. AM CARE DONE. MONITORED ACCORDINGLY. CALL LIGHT WITHIN REACH. BED IN LOWEST POSITION. SR UP X2 FOR SAFETY. WILL ENDORSE TO NEXT SHIFT.
[2020-07-11 06:22] LABS: BASOPHILS # (AUTO) 0.1 /CMM (0.0-0.2); BASOPHILS % (AUTO) 0.6 % (0.0-2.0); EOSINOPHILS % (AUTO) 0.4 % (0.0-6.0); HEMATOCRIT 39 % (33-45); HEMOGLOBIN 12.6 g/dL (11.5-14.8); LYMPHOCYTES # (AUTO) 1.4 /CMM (0.8-4.8); LYMPHOCYTES % (AUTO) 16.7 % (20.0-44.0); MEAN CORPUSCULAR HGB CONC 32 g/dl (31.0-36.0); MEAN CORPUSCULAR VOLUME 87 fL (82-100); MONOCYTES # (AUTO) 0.6 /CMM (0.1-1.30); MONOCYTES % (AUTO) 6.8 % (2.0-12.0); NEUTROPHILS # (AUTO) 6.4 /CMM (1.8-8.9); NEUTROPHILS % (AUTO) 75.5 % (43.0-81.0); PLATELET COUNT (AUTO) 252 /CMM (150-450); RED BLOOD CELL COUNT(AUTO) 4.53 MIL/uL (4.0-5.2); WHITE BLOOD COUNT (AUTO) 8.4 K/uL (4.3-11.0)
[2020-07-11 06:44] LABS: CALCIUM, SERUM 8.4 mg/dL (8.5-10.1); CREATININE 1.1 mg/dL (0.6-1.3); MAGNESIUM 1.6 mg/dL (1.8-2.4); PHOSPHORUS 2.6 mg/dL (2.5-4.9); POTASSIUM 3.2 mmol/L (3.5-5.1)
[2020-07-11 07:04] LABS: THYROID STIMULATING HORMONE 1.05 uIU/mL (0.358-3.74)
--- NOTE | 2020-07-11 07:08 | NUR ---
SPECIAL EDUCATION SUPERINTENDENT OPENING NOTES RECEIVED PT AWAKE IN BED AT THIS TIME. AOX2-3. KYRGYZ SPEAKING. NO SOB NOTED, NO S/O ANY APPARENT DISTRESS NOTED, NO C/O OF PAIN AT THIS TIME. PT STABLE ON RA. RESPIRATIONS EVEN AND UNLABORED. PT ON EXTERNAL CARDIAC TELE MONITOR READING CONTROLLED A-FIB. IV ACCESS NOTED IN RFA G#20, INTACT, PATENT AND FLUSHING WELL. SAFETY PRECAUTIONS IN PLACE AND MAINTAINED AT ALL TIMES. BED IN LOWEST LOCKED POSITION, HOB ELEVATED, SIDE RAILS UP X 2. CALL LIGHT AND TABLE WITHIN REACH. WILL CONTINUE TO MONITOR
[2020-07-11 08:00] VITALS: BP 105/59
[2020-07-11] MEDS: PANTOPRAZOLE 40 MG TABLET.DR PO SCH (08:05)
--- NOTE | 2020-07-11 08:25 | NUR ---
SPOKE WITH PATIENT'S DAUGHTER AND UPDATED ON PATIENT'S CONDITION.
[2020-07-11] MEDS: Magnesium 1GM/D5W 100ML PREMIX 100 ML IV SCH ×2 (08:30→09:36)
[2020-07-11] MEDS: POTASSIUM CL. PREMIX PERIPHER. 50 ML IV SCH ×4 (08:53→12:14)
[2020-07-11] MEDS ORDERED: FUROSEMIDE 40 MG/4 ML VIAL IV SCH (09:00)
[2020-07-11] MEDS: ENOXAPARIN SODIUM 40 MG/0.4 ML DISP.SYRIN SQ SCH (10:18)
--- NOTE | 2020-07-11 11:46 | NUR ---
RECEIVED ORDER FROM PHARMACIST AUGUSTINE TO PLACE AN ORDER FOR PT/INR SINCE PATIENT IS ON COUMADIN. ORDER READ BACK AND CARRIED OUT.
--- NOTE | 2020-07-11 12:55 | NUR ---
RECEIVED DISCHARGE ORDERS TO DISCHARGE PATIENT. PER PATIENT, HE IS HOMELESS. SOCIAL SERVICE CONSULT TRIGGERED TO PROVIDE PATIENT WITH RESOURCES AND INFORMATION. WHILE PREPPING DISCHARGE PAPERS LAURE EMBOSSING MACHINE OPERATOR HELPER NOTIFIED NURSE OF PATIENT ELOPEMENT THROUGH [facility]. SECURITY WAS CALLED IN BUT PATIENT WAS NOT FOUND. PT LEFT HOSPITAL WITH HOSPITAL ID BAND AND IV ACCESS STILL IN PLACE. [facility] SOCIAL SERVICE CAME TO UNIT TO PROVIDE PATIENT WITH RESOURCES AND WAS INFORMED PT HAD ELOPED AMA FROM HOSPITAL. HUNG, CHARGE NURSE AND DR BRAMBILA, AWARE. Addendum: 07/11/20 at 1451 by PALMA JACOB RN documentation not meant for this patient. disregard
[2020-07-11] MEDS: DIGOXIN 0.25 MG TABLET PO SCH (13:37)
[2020-07-11 16:00] VITALS: BP 102/59
[2020-07-11] MEDS: WARFARIN SODIUM 2 MG TABLET PO SCH (16:58)
--- NOTE | 2020-07-11 18:27 | NUR ---
MS RN CLOSING NOTES PT AWAKE IN BED AT THIS TIME. PT REMAINED STABLE THROUGHOUT SHIFT. ALL CARE, NEEDS, TREATMENT AND MEDICATIONS ADMINISTERED ANTICIPATED PER ORDER. PT KEPT CLEAN AND DRY. ELECTROLYTES REPLACE PER ORDER. PT REORIENTED PRN. SAFETY PRECAUTIONS IN PLACE AND MAINTAINED AT ALL TIMES. BED IN LOWEST LOCKED POSITION, HOB ELEVATED, SIDE RAILS UP X 2. CALL LIGHT AND TABLE WITHIN REACH. WILL ENDORSE TO GIFT PACKER NURSE FOR JUDIE
--- NOTE | 2020-07-11 19:15 | NUR ---
DE ALCHOLIZER OPENING NOTE PATIENT RECEIVED IN BED AWAKE, WATCHING, PATIENT HAS A VERY UPBEAT MOOD, A/O X 2-3. GERMAN SPEAKING. TELE MONITOR READS CONTROLLED AFIB AT 97 BPM. BREATHING EVEN AND UNLABORED, TOLERATING ROOM AIR AT 99% O2 SATURATION. NO COMPLAINS OF PAIN OR DISCOMFORT AT THIS TIME. SAFETY MEASURES IN PLACE: CALL LIGHT WITHIN REACH, SIDE RAILS UP, BED IN LOCKED AND LOWEST POSITION. WILL MONITOR PATIENT CLOSELY.
[2020-07-11 20:00] VITALS: BP 103/55
[2020-07-12] VITALS: BP 102/70
[2020-07-12 04:00] VITALS: BP 108/69
[2020-07-12 06:29] LABS: BASOPHILS % (AUTO) 0.4 % (0.0-2.0); EOSINOPHILS % (AUTO) 0.6 % (0.0-6.0); HEMATOCRIT 37 % (33-45); HEMOGLOBIN 12.1 g/dL (11.5-14.8); LYMPHOCYTES # (AUTO) 1.3 /CMM (0.8-4.8); LYMPHOCYTES % (AUTO) 14.1 % (20.0-44.0); MEAN CORPUSCULAR HGB CONC 33 g/dl (31.0-36.0); MEAN CORPUSCULAR VOLUME 86 fL (82-100); MONOCYTES # (AUTO) 0.7 /CMM (0.1-1.30); MONOCYTES % (AUTO) 8.2 % (2.0-12.0); NEUTROPHILS % (AUTO) 76.7 % (43.0-81.0); PLATELET COUNT (AUTO) 260 /CMM (150-450); WHITE BLOOD COUNT (AUTO) 9.1 K/uL (4.3-11.0)
--- NOTE | 2020-07-12 07:02 | NUR ---
RECRUITING MANAGER CLOSING NOTE PATIENT IN BED, AWAKE. A/ O X 2-3. ABLE TO MAKE NEEDS KNOWN. TOLERATING ROOM AIR, BREATHING EVEN AND UNLABORED. AMBULATORY WITH ASSIST. NO COMPLAINS OF PAIN OR DISCOMFORT AT THIS TIME. TELE MONITOR READS CONTROLLED AFIB WITH 85 BPM. SAFETY MEASURES MAINTAINED. ALL NEEDS MET AND ATTENDED. WILL ENDORSE TO DAY SHIFT NURSE FOR JUDIE.
[2020-07-12 07:15] LABS: CALCIUM, SERUM 7.4 mg/dL (8.5-10.1); MAGNESIUM 1.8 mg/dL (1.8-2.4); PHOSPHORUS 1.8 mg/dL (2.5-4.9); POTASSIUM 3.5 mmol/L (3.5-5.1)
--- NOTE | 2020-07-12 07:43 | NUR ---
MID LEVEL PROJECT MANAGER OPENING NOTES Patient is awake, A&O3, and pleasant. VS WNL. Patient verbalizes understanding that she should ask for assistance when getting out of bed. Denies any pain or discomfort. No cardiac or respiratory distress noted.
[2020-07-12 08:00] VITALS: BP 103/61
[2020-07-12] MEDS: PANTOPRAZOLE 40 MG TABLET.DR PO SCH (08:21)
[2020-07-12] MEDS: ENOXAPARIN SODIUM 40 MG/0.4 ML DISP.SYRIN SQ SCH (09:51)
[2020-07-12] MEDS: DIGOXIN 0.25 MG TABLET PO SCH (12:21)
[2020-07-12] MEDS ORDERED: NEUTRA PHOS 1 POWD.PACKET PO ONE (12:30)
[2020-07-12 16:05] VITALS: BP 121/62
[2020-07-12] MEDS: WARFARIN SODIUM 2 MG TABLET PO SCH (17:02)
--- NOTE | 2020-07-12 18:10 | NUR ---
RN MS CLOSING NOTES Patient A&Ox3. VS WNL. No c/o pain or discomfort. Denies SOB, dyspnea, chest pain, or any kind of distress. Walks to bathroom with stand by assist. Tolerating soft diet well no cough or choke during meals. No s/s of bleeding. Cooperative with using call light for needs. Able to verbalize needs.
--- NOTE | 2020-07-12 19:32 | NUR ---
MS RN OPENING NOTES PATIENT WAS LAST SEEN AWAKE IN BED. PATIENT IS ALERT AND ORIENTED X 2-3. PATIENT IS ABLE TO MAKE HER NEEDS KNOWN. PATIENT IS ON ROOM AIR WITH NO RESPIRATORY DISTRESS NOTED. PATIENT HAS AN IV ACCESS ON HER RIGHT FOREARM GAUGE #2O WHICH IS INTACT, PATENT, AND FLUSHES WELL. SAFETY PRECAUTIONS IMPLEMENTED. BED LOCKED. BED ALARM ON. SIDE RAILS UP. CALL LIGHT IS WITHIN REACH OF THE PATIENT. WILL CONTINUE TO MONITOR THE PATIENT.
[2020-07-12 20:00] VITALS: BP 96/71
[2020-07-13 06:44] LABS: BASOPHILS % (AUTO) 0.3 % (0.0-2.0); EOSINOPHILS % (AUTO) 0.5 % (0.0-6.0); HEMATOCRIT 41 % (33-45); HEMOGLOBIN 13.2 g/dL (11.5-14.8); LYMPHOCYTES # (AUTO) 1.2 /CMM (0.8-4.8); LYMPHOCYTES % (AUTO) 11.6 % (20.0-44.0); MEAN CORPUSCULAR HGB CONC 32 g/dl (31.0-36.0); MEAN CORPUSCULAR VOLUME 87 fL (82-100); MONOCYTES # (AUTO) 0.8 /CMM (0.1-1.30); MONOCYTES % (AUTO) 7.9 % (2.0-12.0); NEUTROPHILS # (AUTO) 8.3 /CMM (1.8-8.9); NEUTROPHILS % (AUTO) 79.7 % (43.0-81.0); PLATELET COUNT (AUTO) 263 /CMM (150-450); RED BLOOD CELL COUNT(AUTO) 4.72 MIL/uL (4.0-5.2); WHITE BLOOD COUNT (AUTO) 10.3 K/uL (4.3-11.0)
[2020-07-13 07:13] LABS: CALCIUM, SERUM 7.6 mg/dL (8.5-10.1); CREATININE 0.9 mg/dL (0.6-1.3); MAGNESIUM 1.5 mg/dL (1.8-2.4); PHOSPHORUS 2.8 mg/dL (2.5-4.9)
--- NOTE | 2020-07-13 07:52 | NUR ---
MS RN CLOSING NOTES PATIENT WAS LAST SEEN AWAKE IN BED. PATIENT IS ALERT AND ORIENTED X 2-3. PATIENT IS ABLE TO MAKE HER NEEDS KNOWN. PATIENT IS ON ROOM AIR WITH NO RESPIRATORY DISTRESS NOTED. PATIENT HAS AN IV ACCESS ON HER RIGHT FOREARM GAUGE #2O WHICH IS INTACT, PATENT, AND FLUSHES WELL. SAFETY PRECAUTIONS IMPLEMENTED. BED LOCKED. BED ALARM ON. SIDE RAILS UP. CALL LIGHT IS WITHIN REACH OF THE PATIENT. ENDORSED CARE TO DAY SHIFT NURSE.
[2020-07-13 08:00] VITALS: BP 119/73
[2020-07-13] MEDS: PANTOPRAZOLE 40 MG TABLET.DR PO SCH (08:17)
--- NOTE | 2020-07-13 08:47 | NUR ---
MS RN OPENING NOTES RECEIVED PATIENT AWAKE, IN BATHROOM. A/O X3. SPEAKS ICELANDIC, UNDERSTANDS VERY LITTLE ARABIC. PATIENT ON ROOM AIR - TOLERATING WELL. NO SOB NOTED. IV ACCESS TO RIGHT FOREARM #20 - INTACT, PATENT, NO FLUIDS RUNNING. SAFETY PRECAUTIONS IMPLEMENTED. BED LOCKED AND IN LOWEST POSITION. CALL LIGHT WITHIN REACH. WILL CONTINUE TO MONITOR.
[2020-07-13] MEDS: POTASSIUM CHLORIDE 20 MEQ TAB.PRT.SR PO SCH ×3 (10:27→12:40)
[2020-07-13] MEDS: Magnesium 1GM/D5W 100ML PREMIX 100 ML IV SCH ×2 (10:28→11:24)
[2020-07-13] MEDS: ENOXAPARIN SODIUM 40 MG/0.4 ML DISP.SYRIN SQ SCH (11:26)
[2020-07-13] MEDS: DIGOXIN 0.25 MG TABLET PO SCH (12:41)
[2020-07-13] MEDS ORDERED: Warfarin Sodium PO (15:41)
[2020-07-13] MEDS ORDERED: PANT40TA2 PO (15:41)
--- NOTE | 2020-07-13 15:55 | NUR ---
MS ASSISTANT CLINICAL NURSE MANAGER NOTE PATIENT DISCHARGED VIA PRIVATE CAR @ 8161. PATIENT MEDICALLY STABLE. A/O X4. VITALS STABLE. NO PAIN NOTED. NO SOB NOTED. NO DISTRESS NOTED. ALL SCHEDULED MEDICATIONS GIVEN TO PATIENT. SKIN INTACT. EDUCATIONAL INFORMATION GONE OVER WITH PATIENT. PATIENT SIGNED BELONGINGS FORM AND DISCHARGE INSTRUCTIONS. ALL PATIENT INFORMATION AND EXITCARE GIVEN TO PATIENT IN DISCHARGE FOLDER. PRESCRIPTION GIVEN TO DAUGHTER. IV REMOVED. WRISTBAND REMOVED. PATIENT ACCOMPANIED BY JANETH SPRINGER TO LOBBY WITH DAUGHTER.
[2020-07-13] MEDS ORDERED: WARFARIN SODIUM 1 MG TABLET PO SCH (17:00)
== END 2020-07-13 15:55 | disposition home health service (06) | DRG 281 ==
LOC: ER 08:30 → TELE 11:51 → MED 07-12 09:28
PROVIDERS: ADMIT Student in an Organized Health Care Education/Training Program; ATTEND Student in an Organized Health Care Education/Training Program
DX: I11.0 Hypertensive heart disease with heart failure (principal); I21.A1 Myocardial infarction type 2; D68.59 Other primary thrombophilia; E44.1 Mild protein-calorie malnutrition; Z68.1 Body mass index [BMI] 19.9 or less, adult; I50.43 Acute on chronic combined systolic (congestive) and diastolic (congestive) heart failure; I25.10 Atherosclerotic heart disease of native coronary artery without angina pectoris; K21.9 Gastro-esophageal reflux disease without esophagitis; E87.6 Hypokalemia; E78.5 Hyperlipidemia, unspecified; I48.0 Paroxysmal atrial fibrillation; I25.2 Old myocardial infarction; Z87.442 Personal history of urinary calculi; Z87.891 Personal history of nicotine dependence; Z79.01 Long term (current) use of anticoagulants; Z95.1 Presence of aortocoronary bypass graft; D72.829 Elevated white blood cell count, unspecified; E88.09 Other disorders of plasma-protein metabolism, not elsewhere classified; Z20.822 Contact with and (suspected) exposure to COVID-19
CPT/HCPCS: 36415; 70450-TC; 71045-TC; 80048-TC; 80061-TC; 80076-TC; 80162-TC; 81001; 82140-TC; 83605-TC; 83735-TC; 83880; 84100-TC; 84443-TC; 84484-TC; 85025-TC; 85610-TC; 85730-TC; 87040-TC; 87081-TC; 87086-TC; 93307-TC; C9803; G0378; G0480; J1200; J1650; J1940; J2060; J3475; J3480; J3490; U0003

== ENCOUNTER 2024-04-10 18:37 | Inpatient (IN) | payer MEDICARE, OTHER ==
[~2024-04-10] VITALS: Ht 152.4 cm; Wt 45.2 kg
[~2024-04-10 18:37] MED LIST changes: +APIX2.5T PO; -ATOR20TA PO; +DIGO250T PO; -Digoxin PO; -LISI-768 PO; -MAGN400T26 PO; +PANT40TA2 PO; +POTA8TAB3 PO; -WARF-68 PO; +Warfarin Sodium PO
[2024-04-10] MEDS ORDERED: IV NS 0.9% 1,000 ML BAG IV ONE (19:00)
[2024-04-10 19:23] LABS: BASOPHILS % (AUTO) 0.2 % (0.0-2.0); HEMATOCRIT 33 % (33-45); HEMOGLOBIN 9.9 g/dL (11.5-14.8); LYMPHOCYTES # (AUTO) 1.8 K/uL (0.8-4.8); LYMPHOCYTES % (AUTO) 9.2 % (20.0-44.0); MEAN CORPUSCULAR HEMOGLOBIN 29 PG (26.0-33.0); MEAN CORPUSCULAR HGB CONC 30 g/dl (31.0-36.0); MEAN CORPUSCULAR VOLUME 95 fL (82-100); MONOCYTES % (AUTO) 4.9 % (2.0-12.0); NEUTROPHILS % (AUTO) 85.7 % (43.0-81.0); PLATELET COUNT (AUTO) 362 K/uL (150-450); RED BLOOD CELL COUNT(AUTO) 3.43 MIL/uL (4.0-5.2); RED CELL DISTRIBUTION WIDTH 17.8 % (11.5-15.0); WHITE BLOOD COUNT (AUTO) 19.9 K/uL (4.3-11.0)
[2024-04-10] MEDS: PANTOPRAZOLE 80 MG in IV NS 0.9% 100 ML IV ONE (19:30)
[2024-04-10] MEDS ORDERED: NOREPINEPHRINE 8MG/250ML RTU 250 ML IV ONE (19:30)
[2024-04-10] MEDS ORDERED: Calcium Gluconate 1GM/10ML 4.65 MEQ in IV NS 0.9% 100 ML IV ONE (19:30)
[2024-04-10] MEDS: IV NS 0.9% 1,000 ML BAG IV ONE (19:30)
[2024-04-10] MEDS ORDERED: NOREPINEPHRINE 8 MG in IV D5W 242 ML IV PRN ×3 (19:30→23:30)
[2024-04-10 19:33] LABS: INR 1.54 (0.91-1.10); PARTIAL THROMBOPLASTIN TIME 47.1 SEC (24.3-34.3); PROTHROMBIN TIME 15.9 SECS (9.2-11.1)
[2024-04-10 19:35] LABS: SERUM AMMONIA 54 umol/L (11-32)
[2024-04-10 19:41] LABS: ALANINE AMINOTRANSFERASE 18 U/L (12-78); ALBUMIN 3.2 g/dL (3.4-5.0); ALCOHOL, BLOOD < 3 mg/dL (0-10); ALKALINE PHOSPHATASE 241 U/L (46-116); ASPARTATE AMINOTRANSFERASE 9 U/L (15-37); BILIRUBIN,DIRECT 0.1 mg/dL (0.0-0.2); BILIRUBIN,TOTAL 0.2 mg/dL (0.2-1.0); CALCIUM, SERUM 7.8 mg/dL (8.5-10.1); CHLORIDE 113 mmol/L (98-107); CREATININE 5.4 mg/dL (0.6-1.3); GLUCOSE 144 mg/dL (74-106); POTASSIUM 3.5 mmol/L (3.5-5.1); SODIUM SERUM 137 mmol/L (136-145); TOTAL PROTEIN, SERUM 6.4 g/dL (6.4-8.2); UREA NITROGEN, BLOOD 51 mg/dL (7-18)
[2024-04-10 19:43] LABS: SALICYLATE 1.5 mg/dL (2.8-20.0)
[2024-04-10] MEDS: SODIUM BICARBONATE SYR 50 MEQ/50 ML DISP.SYRIN IV ONE (19:45)
[2024-04-10] MEDS: CIPROFLOXACIN IV RTU 400 MG in PREMIX 1 EA IV SCH (19:45)
[2024-04-10 19:46] LABS: ACETAMINOPHEN 0 ug/ml (10-30); CARBON DIOXIDE 8 mmol/L (21-32)
[2024-04-10] MEDS ORDERED: SODIUM BICARBONATE SYR 50 MEQ/50 ML DISP.SYRIN ONE (19:51)
[2024-04-10] MEDS: EPINEPHRINE (1:1000) 5 MG in IV NS 0.9% 245 ML IV PRN (20:30)
[2024-04-10] MEDS: PANTOPRAZOLE 80 MG in IV NS 0.9% 500 ML IV ONE (20:30)
[2024-04-10] MEDS: MEROPENEM 1,000 MG in IV NS 0.9% 100 ML IV ONE (21:30)
[2024-04-10 21:34] LABS: ABG BASE EXCESS -30.8 mmol/L (-2.0-3.0); ABG OXYGEN SATURATION 98.9 % (94.0-98.0); ABG PCO2 33.2 mmHg (32.0-45.0); ABG PH 6.722 (7.350-7.450); ABG PO2 301.6 mmHg (83.0-108.0); ABG TOTAL HEMOGLOBIN 10.7 G/dL (12.0-16.0); COHb 0.1 % (0.5-1.5); MetHb 2.6 % (0.0-1.5); O2Hb 96.2 % (94.0-97.0); SITE, ABG RIGHT RADIAL
[2024-04-10] MEDS: VANCOMYCIN 1 GM in IV D5W 250 ML IV ONE (22:00)
[2024-04-10] MEDS ORDERED: Sodium Bicarbonate 50 MEQ in IV NS 0.9% 1,000 ML IV PRN (22:00)
[2024-04-10] MEDS ORDERED: VANCOMYCIN 1 GM /D5W 250 ML PB IV ONE (22:34)
[2024-04-10] MEDS ORDERED: MEROPENEM 1 G VIAL IV ONE (22:34)
[2024-04-10] MEDS ORDERED: ONDANSETRON HCL/PF 4 MG/2 ML VIAL IVP PRN (23:30)
[2024-04-10] MEDS ORDERED: Z GUARD REMEDY 4 OZ OINT TP PRN (23:30)
[2024-04-11] VITALS (40 sets, daily range): BP systolic 44–128; BP diastolic 31–90; TEMP 96–103.1; O2SAT 48–100
[2024-04-11] MEDS ORDERED: EPINEPHRINE (1:1000) MDV 30 MG/30ML VIAL ONE (00:14)
[2024-04-11] MEDS: EPINEPHRINE (1:1000) 5 MG in IV NS 0.9% 245 ML IV PRN (00:25)
[2024-04-11] MEDS: SODIUM BICARBONATE SYR 50 MEQ/50 ML DISP.SYRIN ONE (00:31)
[2024-04-11] MEDS: Sodium Bicarbonate 100 MEQ in IV 1/2NS 1000 ML 1,000 ML IV PRN (00:40)
[2024-04-11] MEDS: HYDROCORTISONE SOD SUCCINATE 100 MG/2 ML VIAL IV SCH ×2 (00:59→13:30)
[2024-04-11] MEDS ORDERED: PROPOFOL 100 ML IV PRN (01:30)
[2024-04-11] MEDS ORDERED: VASOPRESSIN INJ 40 UNIT in IV NS 0.9% 38 ML IV PRN (01:30)
[2024-04-11 02:31] LABS: ABG BASE EXCESS -32.4 mmol/L (-2.0-3.0); ABG OXYGEN SATURATION 93.3 % (94.0-98.0); ABG PCO2 37.4 mmHg (32.0-45.0); ABG PO2 89.7 mmHg (83.0-108.0); ABG TOTAL HEMOGLOBIN 10.9 G/dL (12.0-16.0); COHb 0.2 % (0.5-1.5); MetHb 1.7 % (0.0-1.5); O2Hb 91.5 % (94.0-97.0); PEEP,BG 5 cm H2O; SITE, ABG ALINE; VT, ABG 450 mL
[2024-04-11] MEDS: NOREPINEPHRINE 8 MG in IV D5W 242 ML IV PRN ×2 (02:41→05:33)
[2024-04-11] MEDS: SODIUM BICARBONATE SYR 50 MEQ/50 ML DISP.SYRIN IV ONE ×2 (03:05→09:18)
[2024-04-11 03:56] LABS: BASOPHILS % (AUTO) 0.1 % (0.0-2.0); EOSINOPHILS % (AUTO) 0.1 % (0.0-6.0); HEMATOCRIT 28 % (33-45); LYMPHOCYTES # (AUTO) 0.7 K/uL (0.8-4.8); LYMPHOCYTES % (AUTO) 4.1 % (20.0-44.0); MEAN CORPUSCULAR HEMOGLOBIN 29 PG (26.0-33.0); MEAN CORPUSCULAR HGB CONC 32 g/dl (31.0-36.0); MEAN CORPUSCULAR VOLUME 91 fL (82-100); MONOCYTES # (AUTO) 0.2 K/uL (0.1-1.30); MONOCYTES % (AUTO) 1.5 % (2.0-12.0); NEUTROPHILS # (AUTO) 15.3 K/uL (1.8-8.9); NEUTROPHILS % (AUTO) 94.2 % (43.0-81.0); PLATELET COUNT (AUTO) 286 K/uL (150-450); RED BLOOD CELL COUNT(AUTO) 3.11 MIL/uL (4.0-5.2); RED CELL DISTRIBUTION WIDTH 16.8 % (11.5-15.0); WHITE BLOOD COUNT (AUTO) 16.2 K/uL (4.3-11.0)
[2024-04-11 04:10] LABS: CALCIUM, SERUM 6.6 mg/dL (8.5-10.1); CREATININE 4.9 mg/dL (0.6-1.3); MAGNESIUM 2.2 mg/dL (1.8-2.4); PHOSPHORUS 7.5 mg/dL (2.5-4.9)
[2024-04-11 04:26] LABS: THYROID STIMULATING HORMONE 4.72 uIU/mL (0.358-3.74)
[2024-04-11 04:45] LABS: POTASSIUM 2.4 mmol/L (3.5-5.1)
[2024-04-11] MEDS: POTASSIUM CL. PREMIX PERIPHER. 50 ML IV SCH (06:38)
[2024-04-11] MEDS ORDERED: IV NS 0.9% 250 ML IV PRN (07:00)
[2024-04-11] MEDS: EPINEPHRINE (1:1000) 10 MG in IV NS 0.9% 240 ML IV PRN (07:44)
[2024-04-11] MEDS ORDERED: NOREPINEPHRINE 32 MG in IV NS 0.9% 218 ML IV PRN (08:00)
[2024-04-11] MEDS ORDERED: PHENYLEPHRINE 100 MG in IV NS 0.9% 240 ML IV PRN (08:00)
[2024-04-11] MEDS ORDERED: EPINEPHRINE (1:10,000) SYRINGE 1 MG/10 ML DISP.SYRIN IVP ONE (08:31)
[2024-04-11] MEDS: PHENYLEPHRINE 100 MG in IV NS 0.9% 240 ML IV PRN (08:50)
[2024-04-11 08:53] LABS: ABG BASE EXCESS -24.8 mmol/L (-2.0-3.0); ABG OXYGEN SATURATION 96.4 % (94.0-98.0); ABG PCO2 25.9 mmHg (32.0-45.0); ABG PO2 100.5 mmHg (83.0-108.0); ABG TOTAL HEMOGLOBIN 10.5 G/dL (12.0-16.0); COHb 0.3 % (0.5-1.5); MetHb 0.8 % (0.0-1.5); O2Hb 95.3 % (94.0-97.0); PEEP,BG 5 cm H2O; VT, ABG 475 mL
[2024-04-11] MEDS ORDERED: PANTOPRAZOLE 40 MG VIAL IV SCH (09:00)
[2024-04-11] MEDS: Sodium Bicarbonate 150 MEQ in IV 1/2NS 1000 ML 1,000 ML IV SCH (09:42)
[2024-04-11] MEDS: PANTOPRAZOLE 40 MG VIAL IV SCH (09:49)
[2024-04-11] MEDS ORDERED: Sodium Bicarbonate 100 MEQ in IV 1/2NS 1000 ML 1,000 ML IV SCH (13:00)
[2024-04-11] MEDS: NOREPINEPHRINE 32 MG in IV NS 0.9% 218 ML IV PRN (14:29)
[2024-04-11] MEDS: ACETAMINOPHEN 650 MG/SUPP.RECT RC PRN (15:58)
[2024-04-11] MEDS ORDERED: ETOMIDATE 2 MG/ML VIAL IV ONE (16:43)
[2024-04-11] MEDS: LORAZEPAM INJ 2 MG/ML VIAL IV PRN (20:48)
[2024-04-11] MEDS: MORPHINE SULFATE INJ 2 MG/ML DISP.SYRIN IV ONE (20:48)
[2024-04-11] MEDS ORDERED: MORPHINE SULFATE INJ 2 MG/ML DISP.SYRIN IV PRN (21:00)
[2024-04-11] MEDS ORDERED: MEROPENEM 1 G in IV NS 0.9% 100 ML IV SCH (21:30)
[2024-04-13] MEDS ORDERED: VANCOMYCIN 750 MG in IV D5W 250 ML IV SCH (22:00)
== END 2024-04-11 22:23 | DRG 871 ==
LOC: ER 18:40 → ICU 21:56
PROVIDERS: ADMIT Nurse Practitioner Family; ATTEND Nurse Practitioner Family
PROC: 5A1935Z Respiratory Ventilation, Less than 24 Consecutive Hours (ICD-10-PCS; principal; 2024-04-11)
PROC: 0BH17EZ Insertion of Endotracheal Airway into Trachea, Via Natural or Artificial Opening (ICD-10-PCS; 2024-04-11)
PROC: 0JHN3XZ Insertion of Tunneled Vascular Access Device into Right Lower Leg Subcutaneous Tissue and Fascia, Percutaneous Approach (ICD-10-PCS; 2024-04-11)
PROC: 06HM33Z Insertion of Infusion Device into Right Femoral Vein, Percutaneous Approach (ICD-10-PCS; 2024-04-11)
PROC: B54BZZA Ultrasonography of Right Lower Extremity Veins, Guidance (ICD-10-PCS; 2024-04-11)
PROC: 0JH63XZ Insertion of Tunneled Vascular Access Device into Chest Subcutaneous Tissue and Fascia, Percutaneous Approach (ICD-10-PCS; 2024-04-11)
PROC: 05HM33Z Insertion of Infusion Device into Right Internal Jugular Vein, Percutaneous Approach (ICD-10-PCS; 2024-04-11)
PROC: B543ZZA Ultrasonography of Right Jugular Veins, Guidance (ICD-10-PCS; 2024-04-11)
DX: A41.9 Sepsis, unspecified organism (principal); G93.41 Metabolic encephalopathy; J15.9 Unspecified bacterial pneumonia; R65.21 Severe sepsis with septic shock; N17.0 Acute kidney failure with tubular necrosis; N39.0 Urinary tract infection, site not specified; E87.20 Acidosis, unspecified; E44.1 Mild protein-calorie malnutrition; I11.0 Hypertensive heart disease with heart failure; I50.9 Heart failure, unspecified; I48.0 Paroxysmal atrial fibrillation; I25.10 Atherosclerotic heart disease of native coronary artery without angina pectoris; Z88.0 Allergy status to penicillin; Z95.1 Presence of aortocoronary bypass graft; Z79.01 Long term (current) use of anticoagulants; Z79.899 Other long term (current) drug therapy; K27.9 Peptic ulcer, site unspecified, unspecified as acute or chronic, without hemorrhage or perforation; M89.8X9 Other specified disorders of bone, unspecified site; D64.9 Anemia, unspecified; Z87.19 Personal history of other diseases of the digestive system; E88.09 Other disorders of plasma-protein metabolism, not elsewhere classified; E87.6 Hypokalemia; Z51.5 Encounter for palliative care; Z66 Do not resuscitate; Z87.891 Personal history of nicotine dependence; Z87.11 Personal history of peptic ulcer disease
CPT/HCPCS: 36415; 36620; 70450-TC; 71045-TC; 80048-TC; 80061-TC; 80076-TC; 82010-TC; 82140-TC; 82533; 82728-TC; 82803-TC; 82962-TC; 83540-TC; 83605-TC; 83735-TC; 84100-TC; 84439-TC; 84443-TC; 84484-TC; 85025-TC; 85730-TC; 86850-TC; 87040-TC; 92950-TC; 93307-TC; 94002-TC; 94799-TC; A4216; A4223; G0378; G0480; J0171; J0612; J0744; J1720; J2060; J2185; J2270; J2470; J3370; J3480; J3490; J7030; J7040; J7050; J7060